=== PATIENT | female | born 1935 | race African-American/Black ===

== ENCOUNTER 2018-09-10 21:49 | Inpatient (IN) | payer MEDICARE, OTHER ==
[~2018-09-10] VITALS: Ht 170.2 cm; Wt 84.4 kg
[~2018-09-10 21:49] MED LIST: AMLODIPINE; INSULIN
[2018-09-10] MEDS ORDERED: ACETAMINOPHEN 325MG TABLET PO STA (22:54)
[2018-09-10] MEDS ORDERED: SODIUM CHLORIDE 0.9% 1,000 ML IV ONE (22:54)
[2018-09-10 23:55] LABS: BASOPHILS % 0.5 % (0.0-2.0); HEMATOCRIT. 35.7 % (36.0-48.0); HEMOGLOBIN. 11.3 g/dL (12.0-16.0); MEAN CORPUSCULAR VOLUME 81.9 fL (81.0-99.0); NEUTROPHILS % 85.5 % (40.0-76.0); PLATELET 279 x1000/uL (130-400); RED BLOOD CELL COUNT 4.35 mill/uL (4.2-5.4); RED CELL DISTRIBUTION WIDTH 16.1 % (11.6-14.6)
[2018-09-10 23:59] LABS: CLARITY URINE CLOUDY (CLEAR); COLOR URINE YELLOW (YELLOW); KETONES URINE 1+ (NEGATIVE); LEUKOCYTE ESTERASE URINE NEGATIVE (NEGATIVE); NITRITE URINE NEGATIVE (NEGATIVE); OCCULT BLOOD URINE 2+ (NEGATIVE); PROTEIN URINE 4+ (NEGATIVE); SPECIFIC GRAVITY URINE 1.024 (1.005-1.030)
[2018-09-11 00:02] LABS: CHLORIDE 103 mEq/L (98-107)
[2018-09-11] MEDS ORDERED: CEFTRIAXONE 1 G PREMIX 50 ML IV NR (01:00)
[2018-09-11] MEDS ORDERED: AZITHROMYCIN 500 MG in DEXT 5% WATER 250 ML IV SCH (01:00)
[2018-09-11] MEDS ORDERED: ACETAMINOPHEN 325MG TABLET PO PRN (01:30)
[2018-09-11] MEDS ORDERED: CLONIDINE 0.1MG TABLET PO PRN (01:30)
[2018-09-11] MEDS ORDERED: DEXTROSE 50% WATER 50ML SYRINGE IV PRN (01:30)
[2018-09-11] MEDS ORDERED: LEVOFLOXACIN 500MG PREMIX 100 ML IV SCH (01:30)
[2018-09-11] MEDS ORDERED: ONDANSETRON HCL 4MG/2ML INJ IV PRN (01:30)
[2018-09-11] MEDS ORDERED: GUAIFENESIN 200MG/10ML SUGAR FREE UDC PO PRN (02:30)
[2018-09-11] MEDS ORDERED: LEVOFLOXACIN 500MG PREMIX 100 ML IV NR (05:45)
[2018-09-11] MEDS: SODIUM CHLORIDE 0.9% 1,000 ML IV SCH ×2 (05:48→16:40)
[2018-09-11 09:00] VITALS: BP 140/65
[2018-09-11] MEDS ORDERED: CEFEPIME 1,000 MG in DEXTROSE 5% WATER 50 ML IV SCH (09:00)
[2018-09-11] MEDS: BLOOD SUGAR DIAGNOSTIC STRIP TEST SCH ×4 (09:34→21:14)
[2018-09-11] MEDS: INSULIN LISPRO 100 UNITS/ML SUBCUT SCH ×4 (09:35→21:00)
[2018-09-11] MEDS ORDERED: METF-815 PO (10:22)
[2018-09-11] MEDS ORDERED: AMLO10TA80 PO (10:24)
[2018-09-11 16:00] VITALS: BP 155/68
[2018-09-11] MEDS ORDERED: PIPERACILLIN/TAZOBACTAM 2.25 G in DEXTROSE 5% WATER 50 ML IV SCH (16:00)
[2018-09-11] MEDS: PIPERACILLIN/TAZ 2.25G PREMIX 50 ML IV SCH (16:40)
[2018-09-11 20:00] VITALS: BP 132/53
[2018-09-12] VITALS: BP 122/47
[2018-09-12] MEDS: PIPERACILLIN/TAZ 2.25G PREMIX 50 ML IV SCH ×3 (01:16→16:25)
[2018-09-12] MEDS: SODIUM CHLORIDE 0.9% 1,000 ML IV SCH ×2 (01:16→16:28)
[2018-09-12 04:00] VITALS: BP 139/63
[2018-09-12] MEDS: BLOOD SUGAR DIAGNOSTIC STRIP TEST SCH ×4 (06:37→20:53)
[2018-09-12] MEDS: INSULIN LISPRO 100 UNITS/ML SUBCUT SCH ×4 (06:38→20:53)
[2018-09-12 07:28] LABS: CREATINE KINASE 159 IU/L (26-192)
[2018-09-12 08:00] VITALS: BP 158/52
[2018-09-12] MEDS ORDERED: LEVOFLOXACIN 250MG PREMIX 50 ML IV SCH (11:00)
[2018-09-12 12:00] VITALS: BP 141/53
[2018-09-12] MEDS: IPRATROPIUM/ALBUTEROL 0.5-3(2.5)MG/3ML NEB HHN SCH (13:08)
[2018-09-12 16:00] VITALS: BP 154/68
[2018-09-12 20:00] VITALS: BP 126/65
[2018-09-13] VITALS: BP 132/58
[2018-09-13] MEDS: PIPERACILLIN/TAZ 2.25G PREMIX 50 ML IV SCH ×4 (00:58→23:55)
[2018-09-13 04:00] VITALS: BP 141/58
[2018-09-13] MEDS: INSULIN LISPRO 100 UNITS/ML SUBCUT SCH ×4 (06:07→20:37)
[2018-09-13] MEDS: BLOOD SUGAR DIAGNOSTIC STRIP TEST SCH ×4 (06:07→20:37)
[2018-09-13 07:39] LABS: BASOPHILS % 0.8 % (0.0-2.0); EOSINOPHILS % 1.7 % (0.0-5.0); HEMATOCRIT. 25.9 % (36.0-48.0); HEMOGLOBIN. 8.4 g/dL (12.0-16.0); LYMPHOCYTES % 22.1 % (20.0-50.0); MEAN CORPUSCULAR HEMOGLOBIN 26.4 pg (28.0-32.0); MEAN CORPUSCULAR VOLUME 81.5 fL (81.0-99.0); MEAN PLATELET VOLUME 9.3 fl (7.4-10.4); MONOCYTES % 8.1 % (2.0-8.0); NEUTROPHILS % 67.3 % (40.0-76.0); PLATELET 207 x1000/uL (130-400); RED BLOOD CELL COUNT 3.18 mill/uL (4.2-5.4); RED CELL DISTRIBUTION WIDTH 15.3 % (11.6-14.6)
[2018-09-13 08:00] VITALS: BP 157/58
[2018-09-13 11:21] LABS: TOTAL IRON BINDING CAPACITY 118 ug/dL (250-450)
[2018-09-13 12:00] VITALS: BP 124/52
[2018-09-13 16:00] VITALS: BP 133/58
[2018-09-13 20:00] VITALS: BP 160/54
[2018-09-13] MEDS: IPRATROPIUM/ALBUTEROL 0.5-3(2.5)MG/3ML NEB HHN SCH (20:03)
[2018-09-14] VITALS: BP 136/49
[2018-09-14] MEDS: IPRATROPIUM/ALBUTEROL 0.5-3(2.5)MG/3ML NEB HHN SCH ×3 (01:29→13:11)
[2018-09-14 04:00] VITALS: BP 155/62
[2018-09-14] MEDS: BLOOD SUGAR DIAGNOSTIC STRIP TEST SCH ×2 (06:31→11:45)
[2018-09-14] MEDS: INSULIN LISPRO 100 UNITS/ML SUBCUT SCH ×2 (06:31→12:11)
[2018-09-14 06:55] LABS: BASOPHILS % 0.7 % (0.0-2.0); EOSINOPHILS % 1.6 % (0.0-5.0); HEMATOCRIT. 24.9 % (36.0-48.0); LYMPHOCYTES % 19.3 % (20.0-50.0); MEAN CORPUSCULAR HEMOGLOBIN 26.5 pg (28.0-32.0); MEAN CORPUSCULAR VOLUME 82.2 fL (81.0-99.0); MEAN PLATELET VOLUME 9.2 fl (7.4-10.4); MONOCYTES % 10.5 % (2.0-8.0); NEUTROPHILS % 67.9 % (40.0-76.0); PLATELET 217 x1000/uL (130-400); RED BLOOD CELL COUNT 3.03 mill/uL (4.2-5.4); RED CELL DISTRIBUTION WIDTH 15.6 % (11.6-14.6)
[2018-09-14 08:00] VITALS: BP 163/63
[2018-09-14] MEDS: PIPERACILLIN/TAZ 2.25G PREMIX 50 ML IV SCH ×2 (08:00→08:52)
[2018-09-14] MEDS ORDERED: LEVOFLOXACIN 250MG TABLET PO SCH (11:00)
[2018-09-14 12:00] VITALS: BP 175/66
[2018-09-14 16:00] VITALS: BP 170/65
[2018-09-14 16:56] VITALS: BP 170/65
== END 2018-09-14 18:17 | disposition home or self-care (01) | DRG 871 ==
LOC: ER 21:49 → 5WST 09-11 01:07 → EDBEDREQDT 09-11 01:15 → EDBEDREQ 09-11 01:15 → EDBEDREQSVC 09-11 01:15 → EDBEDREQTM 09-11 01:15 → ENRESERV 09-11 07:10
PROVIDERS: ADMIT Internal Medicine; ATTEND Internal Medicine
DX: A41.9 Sepsis, unspecified organism (principal); J18.1 Lobar pneumonia, unspecified organism; N18.9 Chronic kidney disease, unspecified; E11.22 Type 2 diabetes mellitus with diabetic chronic kidney disease; R63.0 Anorexia; I12.9 Hypertensive chronic kidney disease with stage 1 through stage 4 chronic kidney disease, or unspecified chronic kidney disease; Z79.4 Long term (current) use of insulin; Z90.710 Acquired absence of both cervix and uterus; Z79.899 Other long term (current) drug therapy; Z68.29 Body mass index [BMI] 29.0-29.9, adult
CPT/HCPCS: 36415; 71045; 76770; 80048; 82270; 82550; 82962; 83036; 83540; 83550; 83605; 84145; 84484; 93005; 93970; 94640; 96365; 96375; 99285; C1893; J0456; J0696; J1815; J1956; J2543; J7030; J7060; J7620

== ENCOUNTER 2018-11-12 13:06 | Inpatient (IN) | payer MEDICARE ==
[~2018-11-12] VITALS: Ht 170.2 cm; Wt 80.3 kg
[~2018-11-12 13:06] MED LIST changes: +AMLO10TA80 PO; -AMLODIPINE; -INSULIN; +METF-815 PO
[2018-11-12 14:48] LABS: BASOPHILS % 0.5 % (0.0-2.0); EOSINOPHILS % 0.1 % (0.0-5.0); HEMATOCRIT. 29.4 % (36.0-48.0); HEMOGLOBIN. 9.3 g/dL (12.0-16.0); LYMPHOCYTES % 9.9 % (20.0-50.0); MEAN CORPUSCULAR HEMOGLOBIN 26.1 pg (28.0-32.0); MEAN CORPUSCULAR VOLUME 83.1 fL (81.0-99.0); MEAN PLATELET VOLUME 8.2 fl (7.4-10.4); MONOCYTES % 6.5 % (2.0-8.0); PLATELET 446 x1000/uL (130-400); RED BLOOD CELL COUNT 3.54 mill/uL (4.2-5.4); RED CELL DISTRIBUTION WIDTH 16.1 % (11.6-14.6)
[2018-11-12 14:55] LABS: CHLORIDE 112 mEq/L (98-107)
[2018-11-12] MEDS ORDERED: ASPIRIN 81MG TABLET PO ONE (16:00)
[2018-11-12] MEDS ORDERED: FUROSEMIDE 40MG/4ML VIAL IV ONE (16:00)
[2018-11-12] MEDS ORDERED: CLONIDINE 0.1MG TABLET PO PRN (16:45)
[2018-11-12] MEDS ORDERED: ACETAMINOPHEN 325MG TABLET PO PRN (16:45)
[2018-11-12] MEDS ORDERED: ONDANSETRON HCL 4MG/2ML INJ IV PRN (16:45)
[2018-11-12] MEDS ORDERED: GUAIFENESIN-DM 200MG-20MG/10ML UDC PO PRN (16:45)
[2018-11-12] MEDS ORDERED: DEXTROSE 50% WATER 50ML SYRINGE IV PRN (16:45)
[2018-11-12] MEDS ORDERED: HYDRALAZINE 20MG/ML VIAL IV ONE (19:30)
[2018-11-12 22:30] VITALS: BP 182/73
[2018-11-12] MEDS: CARVEDILOL 12.5MG TABLET PO SCH (23:31)
[2018-11-12] MEDS: AMLODIPINE 5MG TABLET PO SCH (23:32)
[2018-11-12] MEDS: BLOOD SUGAR DIAGNOSTIC STRIP TEST SCH (23:42)
[2018-11-12] MEDS: INSULIN LISPRO 100 UNITS/ML SUBCUT SCH (23:43)
[2018-11-13] VITALS (7 sets, daily range): BP systolic 124–149; BP diastolic 47–83
[2018-11-13] MEDS: IPRATROPIUM/ALBUTEROL 0.5-3(2.5)MG/3ML NEB HHN PRN ×2 (02:46→08:32)
[2018-11-13] MEDS: BLOOD SUGAR DIAGNOSTIC STRIP TEST SCH ×4 (05:57→21:59)
[2018-11-13 07:04] LABS: BASOPHILS % 0.5 % (0.0-2.0); EOSINOPHILS % 0.1 % (0.0-5.0); HEMATOCRIT. 24.6 % (36.0-48.0); HEMOGLOBIN. 7.9 g/dL (12.0-16.0); LYMPHOCYTES % 8.1 % (20.0-50.0); MEAN CORPUSCULAR HEMOGLOBIN 26.2 pg (28.0-32.0); MEAN CORPUSCULAR VOLUME 81.9 fL (81.0-99.0); MEAN PLATELET VOLUME 8.3 fl (7.4-10.4); MONOCYTES % 6.7 % (2.0-8.0); NEUTROPHILS % 84.6 % (40.0-76.0); PLATELET 453 x1000/uL (130-400); RED BLOOD CELL COUNT 3.01 mill/uL (4.2-5.4); RED CELL DISTRIBUTION WIDTH 15.8 % (11.6-14.6)
[2018-11-13] MEDS ORDERED: FUROSEMIDE 40MG/4ML VIAL IVP SCH (09:00)
[2018-11-13] MEDS ORDERED: ASPIRIN 81MG TABLET PO SCH (09:00)
[2018-11-13] MEDS ORDERED: AZITHROMYCIN 500 MG TABLET PO NR (09:15)
[2018-11-13] MEDS: AMLODIPINE 5MG TABLET PO SCH ×2 (10:22→21:58)
[2018-11-13] MEDS: CARVEDILOL 12.5MG TABLET PO SCH ×2 (10:22→21:58)
[2018-11-13] MEDS: INSULIN LISPRO 100 UNITS/ML SUBCUT SCH ×4 (10:23→21:00)
[2018-11-13] MEDS: IPRATROPIUM/ALBUTEROL 0.5-3(2.5)MG/3ML NEB HHN SCH ×3 (13:08→20:45)
[2018-11-13] MEDS: CEFTRIAXONE 1 G PREMIX 50 ML IV SCH (13:09)
[2018-11-13 14:21] LABS: CLARITY URINE CLOUDY (CLEAR); COLOR URINE YELLOW (YELLOW); KETONES URINE TRACE (NEGATIVE); LEUKOCYTE ESTERASE URINE NEGATIVE (NEGATIVE); NITRITE URINE NEGATIVE (NEGATIVE); OCCULT BLOOD URINE NEGATIVE (NEGATIVE); PROTEIN URINE 3+ (NEGATIVE); SPECIFIC GRAVITY URINE 1.015 (1.005-1.030); UROBILINOGEN URINE 0.2 E.U./dL (0.2-1.0)
[2018-11-13 14:57] LABS: PHENCYCLIDINE URINE SCREEN NEGATIVE (NEGATIVE)
[2018-11-13 14:59] LABS: *AMPHETAMINES SCREEN URINE NEGATIVE (NEGATIVE); CANNABINOID URINE SCREEN NEGATIVE (NEGATIVE)
[2018-11-13 15:00] LABS: *BARBITURATES SCREEN URINE NEGATIVE (NEGATIVE); *BENZODIAZEPINES SCREEN URINE NEGATIVE (NEGATIVE); *COCAINE SCREEN URINE NEGATIVE (NEGATIVE); METHADONE URINE SCREEN NEGATIVE (NEGATIVE); OPIATES URINE SCREEN NEGATIVE (NEGATIVE)
[2018-11-13 16:20] LABS: T4 FREE 1.49 ng/dL (0.76-1.46)
[2018-11-13 16:28] LABS: CREATINE KINASE 139 IU/L (26-192)
[2018-11-13 16:29] LABS: CREATINE KINASE MB FRACTION 2.7 ng/mL (0.5-3.6)
[2018-11-13] MEDS: GUAIFENESIN 600MG ER TABLET PO SCH (21:58)
[2018-11-14 00:08] VITALS: BP 133/57
[2018-11-14 00:21] LABS: CREATINE KINASE 123 IU/L (26-192)
[2018-11-14] MEDS: IPRATROPIUM/ALBUTEROL 0.5-3(2.5)MG/3ML NEB HHN SCH ×6 (00:21→20:48)
[2018-11-14 00:22] LABS: CREATINE KINASE MB FRACTION 2.2 ng/mL (0.5-3.6)
[2018-11-14 04:18] VITALS: BP 124/61
[2018-11-14] MEDS: BLOOD SUGAR DIAGNOSTIC STRIP TEST SCH ×4 (06:07→21:26)
[2018-11-14 08:00] VITALS: BP 123/43
[2018-11-14] MEDS: INSULIN LISPRO 100 UNITS/ML SUBCUT SCH ×4 (08:10→21:26)
[2018-11-14] MEDS: CARVEDILOL 12.5MG TABLET PO SCH ×2 (08:55→21:25)
[2018-11-14] MEDS: GUAIFENESIN 600MG ER TABLET PO SCH ×2 (08:55→21:25)
[2018-11-14] MEDS: AZITHROMYCIN 500 MG TABLET PO SCH (08:55)
[2018-11-14] MEDS: AMLODIPINE 5MG TABLET PO SCH ×2 (08:56→21:25)
[2018-11-14] MEDS ORDERED: AZITHROMYCIN 250 MG TABLET PO SCH (09:00)
[2018-11-14] MEDS: CEFTRIAXONE 1 G PREMIX 50 ML IV SCH (11:43)
[2018-11-14 12:00] VITALS: BP 118/54
[2018-11-14] MEDS ORDERED: FUROSEMIDE 100MG/10ML VIAL IVP NR (15:30)
[2018-11-14 15:42] LABS: BASOPHILS % 1.4 % (0.0-2.0); EOSINOPHILS % 0.3 % (0.0-5.0); HEMATOCRIT. 23.8 % (36.0-48.0); HEMOGLOBIN. 7.6 g/dL (12.0-16.0); LYMPHOCYTES % 13.4 % (20.0-50.0); MEAN CORPUSCULAR VOLUME 81.6 fL (81.0-99.0); MEAN PLATELET VOLUME 8.3 fl (7.4-10.4); MONOCYTES % 7.8 % (2.0-8.0); NEUTROPHILS % 77.1 % (40.0-76.0); PLATELET 414 x1000/uL (130-400); RED BLOOD CELL COUNT 2.92 mill/uL (4.2-5.4); RED CELL DISTRIBUTION WIDTH 15.4 % (11.6-14.6)
[2018-11-14 15:59] LABS: CHLORIDE 108 mEq/L (98-107)
[2018-11-14 16:00] VITALS: BP 138/60
[2018-11-14 16:07] LABS: CREATINE KINASE 115 IU/L (26-192)
[2018-11-14 16:09] LABS: CREATINE KINASE MB FRACTION 1.6 ng/mL (0.5-3.6)
[2018-11-14 20:16] VITALS: BP 134/56
[2018-11-15] VITALS: BP 113/43
[2018-11-15] MEDS: IPRATROPIUM/ALBUTEROL 0.5-3(2.5)MG/3ML NEB HHN SCH ×6 (00:48→20:35)
[2018-11-15 04:00] VITALS: BP 111/57
[2018-11-15] MEDS: BLOOD SUGAR DIAGNOSTIC STRIP TEST SCH ×5 (06:16→20:29)
[2018-11-15 06:30] LABS: BASOPHILS % 0.6 % (0.0-2.0); EOSINOPHILS % 0.5 % (0.0-5.0); HEMATOCRIT. 23.7 % (36.0-48.0); HEMOGLOBIN. 7.6 g/dL (12.0-16.0); LYMPHOCYTES % 17.1 % (20.0-50.0); MEAN CORPUSCULAR HEMOGLOBIN 25.9 pg (28.0-32.0); MEAN CORPUSCULAR VOLUME 81.2 fL (81.0-99.0); MEAN PLATELET VOLUME 8.3 fl (7.4-10.4); MONOCYTES % 7.5 % (2.0-8.0); NEUTROPHILS % 74.3 % (40.0-76.0); PLATELET 383 x1000/uL (130-400); RED BLOOD CELL COUNT 2.92 mill/uL (4.2-5.4); RED CELL DISTRIBUTION WIDTH 15.8 % (11.6-14.6)
[2018-11-15 08:00] VITALS: BP 121/40
[2018-11-15] MEDS: INSULIN LISPRO 100 UNITS/ML SUBCUT SCH ×5 (08:10→20:42)
[2018-11-15] MEDS: GUAIFENESIN 600MG ER TABLET PO SCH ×2 (09:02→20:42)
[2018-11-15] MEDS: CARVEDILOL 12.5MG TABLET PO SCH ×2 (09:02→20:42)
[2018-11-15] MEDS: AZITHROMYCIN 500 MG TABLET PO SCH (09:02)
[2018-11-15] MEDS: AMLODIPINE 5MG TABLET PO SCH (09:02)
[2018-11-15] MEDS: CEFTRIAXONE 1 G PREMIX 50 ML IV SCH (10:44)
[2018-11-15 12:00] VITALS: BP 112/64
[2018-11-15 13:36] LABS: BG BASE EXCESS -6.8 mmol/L (-2.0-2.0); BG CARBOXYHEMOGLOBIN 0.7 % (0.5-1.5); BG FRACTION INSPIRED OXYGEN 28; BG HCO3 ACT 17.5 mmol/L (22.0-26.0); BG METHEMOGLOBIN 0.3 % (0.0-1.5); BG OXYGEN SATURATION 92.9 % (92.0-98.5); BG PH 7.383 (7.350-7.450); BG PO2 68.6 mmHg (75.0-100.0); BG SAMPLE SITE RIGHT RADIAL; BG VENT MODE NASAL CANNULA
[2018-11-15] MEDS ORDERED: POLYETHYLENE GLYCOL 3350 (17GM) 1 DOSE PACK PO NR (15:45)
[2018-11-15 16:00] VITALS: BP 124/50
[2018-11-15 16:35] LABS: CHLORIDE 105 mEq/L (98-107)
[2018-11-15] MEDS: IRON SUCROSE COMPLEX 100 MG/5 ML ML IV SCH (16:41)
[2018-11-15] MEDS: SODIUM BICARBONATE 650 MG TABLET PO SCH (16:41)
[2018-11-15 16:44] LABS: TOTAL IRON BINDING CAPACITY 169 ug/dL (250-450)
[2018-11-15 20:00] VITALS: BP 138/44
[2018-11-15] MEDS: AMLODIPINE 2.5MG TABLET PO SCH (20:42)
[2018-11-16] VITALS (13 sets, daily range): BP systolic 110–146; BP diastolic 42–90
[2018-11-16] MEDS: IPRATROPIUM/ALBUTEROL 0.5-3(2.5)MG/3ML NEB HHN SCH ×4 (00:26→20:55)
[2018-11-16] MEDS: BLOOD SUGAR DIAGNOSTIC STRIP TEST SCH ×4 (06:33→21:42)
[2018-11-16 07:01] LABS: BASOPHILS % 0.3 % (0.0-2.0); EOSINOPHILS % 0.3 % (0.0-5.0); LYMPHOCYTES % 16.5 % (20.0-50.0); MEAN CORPUSCULAR HEMOGLOBIN 26.3 pg (28.0-32.0); MEAN CORPUSCULAR VOLUME 80.8 fL (81.0-99.0); MEAN PLATELET VOLUME 8.3 fl (7.4-10.4); MONOCYTES % 8.5 % (2.0-8.0); NEUTROPHILS % 74.4 % (40.0-76.0); PLATELET 343 x1000/uL (130-400); RED BLOOD CELL COUNT 2.48 mill/uL (4.2-5.4); RED CELL DISTRIBUTION WIDTH 15.9 % (11.6-14.6)
[2018-11-16 07:47] LABS: HEMOGLOBIN. 6.5 g/dL (12.0-16.0)
[2018-11-16 08:04] LABS: PHOSPHORUS 6.6 mg/dL (2.5-4.9)
[2018-11-16] MEDS: INSULIN LISPRO 100 UNITS/ML SUBCUT SCH ×4 (08:10→21:00)
[2018-11-16] MEDS: SODIUM BICARBONATE 650 MG TABLET PO SCH ×2 (09:15→18:03)
[2018-11-16] MEDS: GUAIFENESIN 600MG ER TABLET PO SCH ×2 (09:17→21:33)
[2018-11-16] MEDS: AMLODIPINE 2.5MG TABLET PO SCH ×2 (09:17→21:33)
[2018-11-16] MEDS: AZITHROMYCIN 500 MG TABLET PO SCH (09:17)
[2018-11-16] MEDS: CARVEDILOL 12.5MG TABLET PO SCH ×2 (09:17→21:34)
[2018-11-16] MEDS: DOCUSATE SODIUM 100MG CAPSULE PO SCH ×2 (09:19→18:03)
[2018-11-16] MEDS: CEFTRIAXONE 1 G PREMIX 50 ML IV SCH (09:31)
[2018-11-16] MEDS: CALCIUM ACETATE 667MG CAPSULE PO SCH ×2 (13:59→18:03)
[2018-11-16] MEDS: IRON SUCROSE COMPLEX 100 MG/5 ML ML IV SCH (16:00)
[2018-11-16 20:08] LABS: HEMATOCRIT 29.5 % (36.0-48.0); HEMOGLOBIN 9.5 g/dL (12.0-16.0)
[2018-11-17] VITALS: BP 119/50
[2018-11-17] MEDS: IPRATROPIUM/ALBUTEROL 0.5-3(2.5)MG/3ML NEB HHN SCH ×5 (01:40→21:34)
[2018-11-17 04:00] VITALS: BP 107/81
[2018-11-17 06:13] LABS: BASOPHILS % 0.5 % (0.0-2.0); EOSINOPHILS % 0.9 % (0.0-5.0); HEMATOCRIT. 26.1 % (36.0-48.0); HEMOGLOBIN. 8.6 g/dL (12.0-16.0); LYMPHOCYTES % 20.7 % (20.0-50.0); MEAN CORPUSCULAR HEMOGLOBIN 27.4 pg (28.0-32.0); MEAN CORPUSCULAR VOLUME 83.2 fL (81.0-99.0); MEAN PLATELET VOLUME 8.3 fl (7.4-10.4); MONOCYTES % 8.2 % (2.0-8.0); NEUTROPHILS % 69.7 % (40.0-76.0); PLATELET 325 x1000/uL (130-400); RED BLOOD CELL COUNT 3.14 mill/uL (4.2-5.4); RED CELL DISTRIBUTION WIDTH 15.9 % (11.6-14.6)
[2018-11-17 06:42] LABS: CHLORIDE 109 mEq/L (98-107)
[2018-11-17] MEDS: BLOOD SUGAR DIAGNOSTIC STRIP TEST SCH ×4 (07:40→23:24)
[2018-11-17 08:00] VITALS: BP 154/60
[2018-11-17] MEDS: INSULIN LISPRO 100 UNITS/ML SUBCUT SCH ×4 (08:10→23:31)
[2018-11-17] MEDS: CALCIUM ACETATE 667MG CAPSULE PO SCH ×3 (08:55→18:28)
[2018-11-17] MEDS: DOCUSATE SODIUM 100MG CAPSULE PO SCH ×2 (09:02→16:46)
[2018-11-17] MEDS: AZITHROMYCIN 500 MG TABLET PO SCH (09:02)
[2018-11-17] MEDS: GUAIFENESIN 600MG ER TABLET PO SCH ×2 (09:02→23:24)
[2018-11-17] MEDS: SODIUM BICARBONATE 650 MG TABLET PO SCH ×2 (09:02→16:46)
[2018-11-17] MEDS: CARVEDILOL 12.5MG TABLET PO SCH ×2 (09:03→23:24)
[2018-11-17] MEDS: AMLODIPINE 2.5MG TABLET PO SCH ×2 (09:04→23:24)
[2018-11-17 09:12] LABS: IMMUNOGLOBULIN A 283 mg/dL (64-422); IMMUNOGLOBULIN G 1253 mg/dL (700-1600); IMMUNOGLOBULIN M 29 mg/dL (26-217)
[2018-11-17] MEDS: CEFTRIAXONE 1 G PREMIX 50 ML IV SCH (09:55)
[2018-11-17 12:00] VITALS: BP 130/56
[2018-11-17] MEDS ORDERED: NA PHOS,M-B/NA PHOS,DI-BA ENEMA 118ML PR PRN (15:30)
[2018-11-17] MEDS ORDERED: LACTULOSE 20G/30ML UDC PO NR (15:30)
[2018-11-17 16:00] VITALS: BP 140/51
[2018-11-17] MEDS: IRON SUCROSE COMPLEX 100 MG/5 ML ML IV SCH (16:46)
[2018-11-17 17:49] LABS: T4 FREE 1.29 ng/dL (0.76-1.46)
[2018-11-17 18:07] LABS: FOLIC ACID (FOLATE) SERUM 6.9 ng/mL (>5.38)
[2018-11-17 19:14] LABS: ANTI-NUCLEAR ANTIBODIES DIRECT Negative (Negative)
[2018-11-17 20:00] VITALS: BP 137/67
[2018-11-17] MEDS ORDERED: LACTULOSE 20G/30ML UDC PO PRN (21:00)
[2018-11-18] VITALS: BP 130/64
[2018-11-18] MEDS: IPRATROPIUM/ALBUTEROL 0.5-3(2.5)MG/3ML NEB HHN SCH ×6 (00:49→21:08)
[2018-11-18 04:00] VITALS: BP 117/56
[2018-11-18 06:24] LABS: BASOPHILS % 0.7 % (0.0-2.0); HEMATOCRIT. 26.4 % (36.0-48.0); HEMOGLOBIN. 8.7 g/dL (12.0-16.0); LYMPHOCYTES % 15.6 % (20.0-50.0); MEAN CORPUSCULAR HEMOGLOBIN 27.5 pg (28.0-32.0); MEAN CORPUSCULAR VOLUME 83.5 fL (81.0-99.0); MEAN PLATELET VOLUME 8.4 fl (7.4-10.4); MONOCYTES % 7.8 % (2.0-8.0); NEUTROPHILS % 74.9 % (40.0-76.0); PLATELET 338 x1000/uL (130-400); RED BLOOD CELL COUNT 3.16 mill/uL (4.2-5.4); RED CELL DISTRIBUTION WIDTH 15.9 % (11.6-14.6)
[2018-11-18 06:45] LABS: CHLORIDE 112 mEq/L (98-107)
[2018-11-18] MEDS: BLOOD SUGAR DIAGNOSTIC STRIP TEST SCH ×4 (06:54→21:28)
[2018-11-18] MEDS: INSULIN LISPRO 100 UNITS/ML SUBCUT SCH ×4 (06:55→21:00)
[2018-11-18 06:58] LABS: PHOSPHORUS 6.3 mg/dL (2.5-4.9)
[2018-11-18 08:00] VITALS: BP 130/74
[2018-11-18] MEDS: DOCUSATE SODIUM 100MG CAPSULE PO SCH ×2 (09:00→17:00)
[2018-11-18] MEDS: SODIUM BICARBONATE 650 MG TABLET PO SCH ×2 (09:00→17:00)
[2018-11-18] MEDS: CARVEDILOL 12.5MG TABLET PO SCH ×2 (09:00→21:28)
[2018-11-18] MEDS: CALCIUM ACETATE 667MG CAPSULE PO SCH ×2 (09:00→18:30)
[2018-11-18] MEDS: POLYETHYLENE GLYCOL 3350 (17GM) 1 DOSE PACK PO SCH (09:01)
[2018-11-18] MEDS: GUAIFENESIN 600MG ER TABLET PO SCH ×2 (09:01→21:28)
[2018-11-18] MEDS: AMLODIPINE 2.5MG TABLET PO SCH ×2 (09:01→21:45)
[2018-11-18] MEDS: AZITHROMYCIN 500 MG TABLET PO SCH (09:01)
[2018-11-18 09:11] LABS: GLOMERULAR BASEMENT MEMB AB 3 units (0-20)
[2018-11-18] MEDS: CEFTRIAXONE 1 G PREMIX 50 ML IV SCH (10:45)
[2018-11-18 12:00] VITALS: BP 137/68
[2018-11-18 13:11] LABS: ANTI-MYELOPEROXIDASE AB < 9.0 U/mL (0.0-9.0); ANTI-PROTEINASE 3 ABS < 3.5 U/mL (0.0-3.5)
[2018-11-18 15:06] LABS: ATYPICAL P-ANCA <1:20 titer (Neg:<1:20); CYTOPLASMIC C-ANCA <1:20 titer (Neg:<1:20); PERINUCLEAR P-ANCA <1:20 titer (Neg:<1:20)
[2018-11-18 16:00] VITALS: BP 140/54
[2018-11-18 20:00] VITALS: BP 152/64
[2018-11-19] VITALS: BP 138/50
[2018-11-19] MEDS: IPRATROPIUM/ALBUTEROL 0.5-3(2.5)MG/3ML NEB HHN SCH ×6 (00:26→21:03)
[2018-11-19 04:00] VITALS: BP 142/61
[2018-11-19 05:45] LABS: INR 1.2
[2018-11-19 06:05] LABS: BASOPHILS % 0.7 % (0.0-2.0); EOSINOPHILS % 1.2 % (0.0-5.0); HEMATOCRIT. 26.6 % (36.0-48.0); HEMOGLOBIN. 8.7 g/dL (12.0-16.0); LYMPHOCYTES % 16.1 % (20.0-50.0); MEAN CORPUSCULAR HEMOGLOBIN 27.3 pg (28.0-32.0); MEAN CORPUSCULAR VOLUME 83.4 fL (81.0-99.0); MEAN PLATELET VOLUME 8.6 fl (7.4-10.4); MONOCYTES % 9.4 % (2.0-8.0); NEUTROPHILS % 72.6 % (40.0-76.0); PLATELET 314 x1000/uL (130-400); RED BLOOD CELL COUNT 3.18 mill/uL (4.2-5.4); RED CELL DISTRIBUTION WIDTH 15.5 % (11.6-14.6)
[2018-11-19] MEDS: BLOOD SUGAR DIAGNOSTIC STRIP TEST SCH ×4 (07:40→21:10)
[2018-11-19 08:00] VITALS: BP 139/68
[2018-11-19] MEDS: INSULIN LISPRO 100 UNITS/ML SUBCUT SCH ×4 (08:10→21:00)
[2018-11-19] MEDS: CALCIUM ACETATE 667MG CAPSULE PO SCH ×3 (08:10→18:20)
[2018-11-19] MEDS: SODIUM BICARBONATE 650 MG TABLET PO SCH ×2 (09:00→18:20)
[2018-11-19] MEDS: POLYETHYLENE GLYCOL 3350 (17GM) 1 DOSE PACK PO SCH (09:00)
[2018-11-19] MEDS: AMLODIPINE 2.5MG TABLET PO SCH ×2 (09:00→21:09)
[2018-11-19] MEDS: GUAIFENESIN 600MG ER TABLET PO SCH ×2 (09:00→21:09)
[2018-11-19] MEDS: AZITHROMYCIN 500 MG TABLET PO SCH (09:00)
[2018-11-19] MEDS: DOCUSATE SODIUM 100MG CAPSULE PO SCH ×2 (09:00→18:20)
[2018-11-19] MEDS: CARVEDILOL 12.5MG TABLET PO SCH ×2 (09:00→21:09)
[2018-11-19] MEDS: CEFTRIAXONE 1 G PREMIX 50 ML IV SCH (10:46)
[2018-11-19] MEDS ORDERED: BISACODYL 10MG SUPP PR SCH (11:00)
[2018-11-19] MEDS ORDERED: BISACODYL 5MG TABLET PO SCH (11:00)
[2018-11-19 12:00] VITALS: BP 138/68
[2018-11-19 13:16] LABS: A/G RATIO 0.6 (0.7-1.7); ALBUMIN 2.8 g/dL (2.9-4.4); ALPHA-1-GLOBULIN 0.5 g/dL (0.0-0.4); ALPHA-2-GLOBULIN 1.3 g/dL (0.4-1.0); GAMMA GLOBULINS 1.6 g/dL (0.4-1.8); GLOBULIN TOTAL 4.4 g/dL (2.2-3.9); M-SPIKE 0.5 g/dL (Not Observed); TOTAL PROTEIN SERUM 7.2 g/dL (6.0-8.5)
[2018-11-19 14:58] LABS: CLARITY URINE CLEAR (CLEAR); COLOR URINE YELLOW (YELLOW); KETONES URINE NEGATIVE (NEGATIVE); LEUKOCYTE ESTERASE URINE 1+ (NEGATIVE); NITRITE URINE NEGATIVE (NEGATIVE); OCCULT BLOOD URINE TRACE (NEGATIVE); PROTEIN URINE 2+ (NEGATIVE); SPECIFIC GRAVITY URINE 1.015 (1.005-1.030); UROBILINOGEN URINE 0.2 E.U./dL (0.2-1.0)
[2018-11-19] MEDS ORDERED: LIDOCAINE HCL 2% JELLY 5ML ONE (15:05)
[2018-11-19] MEDS ORDERED: TETRACAINE/BENZOCAINE/BUTAMBEN 20 GM SPRAY MM ONE (15:05)
[2018-11-19 16:00] VITALS: BP 169/68
[2018-11-19] MEDS ORDERED: BISACODYL 5MG TABLET PO NR (18:00)
[2018-11-19 20:00] VITALS: BP 146/64
[2018-11-20] VITALS: BP 130/48
[2018-11-20] MEDS: IPRATROPIUM/ALBUTEROL 0.5-3(2.5)MG/3ML NEB HHN SCH ×6 (00:51→20:24)
[2018-11-20 04:00] VITALS: BP 140/52
[2018-11-20 07:01] LABS: EOSINOPHILS % 1.2 % (0.0-5.0); HEMOGLOBIN. 8.7 g/dL (12.0-16.0); LYMPHOCYTES % 20.6 % (20.0-50.0); MEAN CORPUSCULAR VOLUME 83.6 fL (81.0-99.0); MEAN PLATELET VOLUME 8.3 fl (7.4-10.4); MONOCYTES % 8.9 % (2.0-8.0); NEUTROPHILS % 68.3 % (40.0-76.0); PLATELET 324 x1000/uL (130-400); RED BLOOD CELL COUNT 3.23 mill/uL (4.2-5.4); RED CELL DISTRIBUTION WIDTH 16.4 % (11.6-14.6)
[2018-11-20 07:28] LABS: CHLORIDE 113 mEq/L (98-107)
[2018-11-20 07:49] LABS: PHOSPHORUS 4.7 mg/dL (2.5-4.9)
[2018-11-20 08:00] VITALS: BP 129/53
[2018-11-20] MEDS: INSULIN LISPRO 100 UNITS/ML SUBCUT SCH ×4 (08:09→21:00)
[2018-11-20] MEDS: BLOOD SUGAR DIAGNOSTIC STRIP TEST SCH ×4 (08:09→21:03)
[2018-11-20] MEDS: CALCIUM ACETATE 667MG CAPSULE PO SCH ×3 (08:10→18:10)
[2018-11-20] MEDS: POLYETHYLENE GLYCOL 3350 (17GM) 1 DOSE PACK PO SCH (08:11)
[2018-11-20] MEDS: DOCUSATE SODIUM 100MG CAPSULE PO SCH ×2 (08:11→16:28)
[2018-11-20] MEDS: AMLODIPINE 2.5MG TABLET PO SCH ×2 (08:11→21:02)
[2018-11-20] MEDS: CARVEDILOL 12.5MG TABLET PO SCH ×2 (08:11→21:02)
[2018-11-20] MEDS: GUAIFENESIN 600MG ER TABLET PO SCH ×2 (08:11→21:00)
[2018-11-20] MEDS: SODIUM BICARBONATE 650 MG TABLET PO SCH ×2 (08:12→16:28)
[2018-11-20] MEDS: AZITHROMYCIN 500 MG TABLET PO SCH (08:12)
[2018-11-20] MEDS ORDERED: LIDOCAINE HCL 2% JELLY 5ML ONE (10:19)
[2018-11-20] MEDS ORDERED: MIDAZOLAM HCL 2 MG/2 ML VIAL ONE ×2 (10:19→11:16)
[2018-11-20] MEDS ORDERED: TETRACAINE/BENZOCAINE/BUTAMBEN 20 GM SPRAY MM ONE (10:19)
[2018-11-20] MEDS ORDERED: FENTANYL CITRATE/PF 50MCG/ML 2ML VIAL ONE (10:19)
[2018-11-20] MEDS ORDERED: SODIUM BICARBONATE 4% (2.4MEQ) 5ML VIAL IV ONE (12:20)
[2018-11-20 16:00] VITALS: BP 139/64
[2018-11-20] MEDS: CEFTRIAXONE 1 G PREMIX 50 ML IV SCH (16:28)
[2018-11-20 20:00] VITALS: BP 149/74
[2018-11-21] VITALS: BP 131/58
[2018-11-21] MEDS: IPRATROPIUM/ALBUTEROL 0.5-3(2.5)MG/3ML NEB HHN SCH ×6 (01:35→19:55)
[2018-11-21 04:00] VITALS: BP 151/61
[2018-11-21 05:46] LABS: BASOPHILS % 0.7 % (0.0-2.0); EOSINOPHILS % 1.5 % (0.0-5.0); HEMATOCRIT. 29.7 % (36.0-48.0); HEMOGLOBIN. 9.5 g/dL (12.0-16.0); LYMPHOCYTES % 17.6 % (20.0-50.0); MEAN CORPUSCULAR HEMOGLOBIN 27.1 pg (28.0-32.0); MEAN CORPUSCULAR VOLUME 84.7 fL (81.0-99.0); MEAN PLATELET VOLUME 8.5 fl (7.4-10.4); MONOCYTES % 8.1 % (2.0-8.0); NEUTROPHILS % 72.1 % (40.0-76.0); PLATELET 343 x1000/uL (130-400); RED CELL DISTRIBUTION WIDTH 16.4 % (11.6-14.6)
[2018-11-21] MEDS: INSULIN LISPRO 100 UNITS/ML SUBCUT SCH ×4 (07:51→21:08)
[2018-11-21] MEDS: BLOOD SUGAR DIAGNOSTIC STRIP TEST SCH ×4 (07:51→21:08)
[2018-11-21 08:00] VITALS: BP 128/44
[2018-11-21] MEDS: AZITHROMYCIN 500 MG TABLET PO SCH (08:29)
[2018-11-21] MEDS: SODIUM BICARBONATE 650 MG TABLET PO SCH ×2 (08:29→17:29)
[2018-11-21] MEDS: CARVEDILOL 12.5MG TABLET PO SCH ×2 (08:30→21:05)
[2018-11-21] MEDS: POLYETHYLENE GLYCOL 3350 (17GM) 1 DOSE PACK PO SCH (08:30)
[2018-11-21] MEDS: CALCIUM ACETATE 667MG CAPSULE PO SCH ×3 (08:31→18:01)
[2018-11-21] MEDS: GUAIFENESIN 600MG ER TABLET PO SCH ×2 (08:31→21:03)
[2018-11-21] MEDS: DOCUSATE SODIUM 100MG CAPSULE PO SCH ×2 (08:31→17:29)
[2018-11-21] MEDS: AMLODIPINE 2.5MG TABLET PO SCH ×2 (08:31→21:04)
[2018-11-21 12:00] VITALS: BP 125/52
[2018-11-21 16:00] VITALS: BP 157/63
[2018-11-21 20:00] VITALS: BP 156/56
[2018-11-22] VITALS: BP 144/65
[2018-11-22] MEDS: IPRATROPIUM/ALBUTEROL 0.5-3(2.5)MG/3ML NEB HHN SCH ×6 (01:35→21:24)
[2018-11-22 04:00] VITALS: BP 148/52
[2018-11-22 06:46] LABS: BASOPHILS % 0.7 % (0.0-2.0); HEMATOCRIT. 28.2 % (36.0-48.0); HEMOGLOBIN. 9.2 g/dL (12.0-16.0); LYMPHOCYTES % 20.5 % (20.0-50.0); MEAN CORPUSCULAR HEMOGLOBIN 27.4 pg (28.0-32.0); MEAN CORPUSCULAR VOLUME 84.3 fL (81.0-99.0); MEAN PLATELET VOLUME 8.1 fl (7.4-10.4); MONOCYTES % 8.1 % (2.0-8.0); NEUTROPHILS % 68.7 % (40.0-76.0); PLATELET 326 x1000/uL (130-400); RED BLOOD CELL COUNT 3.34 mill/uL (4.2-5.4)
[2018-11-22 07:28] LABS: PHOSPHORUS 3.8 mg/dL (2.5-4.9)
[2018-11-22 08:00] VITALS: BP 138/62
[2018-11-22] MEDS: INSULIN LISPRO 100 UNITS/ML SUBCUT SCH ×4 (08:10→21:00)
[2018-11-22] MEDS: BLOOD SUGAR DIAGNOSTIC STRIP TEST SCH ×4 (08:23→21:08)
[2018-11-22] MEDS: CALCIUM ACETATE 667MG CAPSULE PO SCH ×3 (09:03→18:15)
[2018-11-22] MEDS: SODIUM BICARBONATE 650 MG TABLET PO SCH ×2 (09:03→16:50)
[2018-11-22] MEDS: POLYETHYLENE GLYCOL 3350 (17GM) 1 DOSE PACK PO SCH (09:03)
[2018-11-22] MEDS: GUAIFENESIN 600MG ER TABLET PO SCH ×2 (09:03→20:58)
[2018-11-22] MEDS: AMLODIPINE 2.5MG TABLET PO SCH (09:04)
[2018-11-22] MEDS: CARVEDILOL 12.5MG TABLET PO SCH ×2 (09:04→20:58)
[2018-11-22] MEDS: DOCUSATE SODIUM 100MG CAPSULE PO SCH ×2 (09:04→16:50)
[2018-11-22 12:00] VITALS: BP 146/56
[2018-11-22 16:00] VITALS: BP 159/74
[2018-11-22 20:00] VITALS: BP 145/86
[2018-11-22] MEDS: AMLODIPINE 5MG TABLET PO SCH (20:57)
[2018-11-23] VITALS: BP 136/72
[2018-11-23] MEDS: IPRATROPIUM/ALBUTEROL 0.5-3(2.5)MG/3ML NEB HHN SCH ×6 (01:11→20:42)
[2018-11-23 04:00] VITALS: BP 149/58
[2018-11-23] MEDS: BLOOD SUGAR DIAGNOSTIC STRIP TEST SCH ×4 (06:15→20:42)
[2018-11-23 06:30] LABS: BASOPHILS % 0.6 % (0.0-2.0); HEMOGLOBIN. 9.3 g/dL (12.0-16.0); LYMPHOCYTES % 20.8 % (20.0-50.0); MEAN CORPUSCULAR HEMOGLOBIN 26.7 pg (28.0-32.0); MEAN CORPUSCULAR VOLUME 83.5 fL (81.0-99.0); MEAN PLATELET VOLUME 8.1 fl (7.4-10.4); MONOCYTES % 8.3 % (2.0-8.0); NEUTROPHILS % 68.3 % (40.0-76.0); PLATELET 322 x1000/uL (130-400); RED BLOOD CELL COUNT 3.47 mill/uL (4.2-5.4); RED CELL DISTRIBUTION WIDTH 16.3 % (11.6-14.6)
[2018-11-23 07:41] LABS: PHOSPHORUS 3.3 mg/dL (2.5-4.9)
[2018-11-23] MEDS: INSULIN LISPRO 100 UNITS/ML SUBCUT SCH ×4 (07:52→21:00)
[2018-11-23 08:00] VITALS: BP 149/63
[2018-11-23] MEDS: POLYETHYLENE GLYCOL 3350 (17GM) 1 DOSE PACK PO SCH (08:58)
[2018-11-23] MEDS: CALCIUM ACETATE 667MG CAPSULE PO SCH ×3 (08:59→17:38)
[2018-11-23] MEDS: SODIUM BICARBONATE 650 MG TABLET PO SCH ×2 (08:59→17:37)
[2018-11-23] MEDS: AMLODIPINE 5MG TABLET PO SCH ×2 (08:59→20:42)
[2018-11-23] MEDS: DOCUSATE SODIUM 100MG CAPSULE PO SCH ×2 (09:00→17:38)
[2018-11-23] MEDS: GUAIFENESIN 600MG ER TABLET PO SCH ×2 (09:00→20:42)
[2018-11-23] MEDS: CARVEDILOL 12.5MG TABLET PO SCH ×2 (09:00→20:42)
[2018-11-23 12:00] VITALS: BP 150/62
[2018-11-23 20:00] VITALS: BP 163/61
[2018-11-23 21:25] VITALS: BP 118/70
== END 2018-11-23 23:15 | disposition short-term general hospital (02) | DRG 64 ==
LOC: ER 13:06 → 7WST 16:25 → EDBEDREQ 16:30 → ENRESERV 20:51
PROVIDERS: ADMIT Internal Medicine; ATTEND Internal Medicine
PROC: 30233N1 Transfusion of Nonautologous Red Blood Cells into Peripheral Vein, Percutaneous Approach (ICD-10-PCS; principal; 2018-11-16)
PROC: 4A00X4Z Measurement of Central Nervous Electrical Activity, External Approach (ICD-10-PCS; 2018-11-19)
PROC: 0W9B3ZZ Drainage of Left Pleural Cavity, Percutaneous Approach (ICD-10-PCS; 2018-11-20)
DX: I63.9 Cerebral infarction, unspecified (principal); J18.9 Pneumonia, unspecified organism; J96.00 Acute respiratory failure, unspecified whether with hypoxia or hypercapnia; E43 Unspecified severe protein-calorie malnutrition; I50.43 Acute on chronic combined systolic (congestive) and diastolic (congestive) heart failure; I33.0 Acute and subacute infective endocarditis; I13.0 Hypertensive heart and chronic kidney disease with heart failure and stage 1 through stage 4 chronic kidney disease, or unspecified chronic kidney disease; N17.9 Acute kidney failure, unspecified; N18.4 Chronic kidney disease, stage 4 (severe); E87.2 Acidosis; N39.0 Urinary tract infection, site not specified; J91.8 Pleural effusion in other conditions classified elsewhere; I31.3 Pericardial effusion (noninflammatory); G81.94 Hemiplegia, unspecified affecting left nondominant side; E11.22 Type 2 diabetes mellitus with diabetic chronic kidney disease; E78.5 Hyperlipidemia, unspecified; D63.8 Anemia in other chronic diseases classified elsewhere; B95.1 Streptococcus, group B, as the cause of diseases classified elsewhere; I27.20 Pulmonary hypertension, unspecified; I35.0 Nonrheumatic aortic (valve) stenosis; E87.8 Other disorders of electrolyte and fluid balance, not elsewhere classified; E11.40 Type 2 diabetes mellitus with diabetic neuropathy, unspecified; M19.90 Unspecified osteoarthritis, unspecified site; M10.9 Gout, unspecified; G89.29 Other chronic pain; M54.5 Low back pain; D50.9 Iron deficiency anemia, unspecified; K80.20 Calculus of gallbladder without cholecystitis without obstruction; L29.9 Pruritus, unspecified; R21 Rash and other nonspecific skin eruption; N28.1 Cyst of kidney, acquired; K56.41 Fecal impaction; R70.0 Elevated erythrocyte sedimentation rate; I65.22 Occlusion and stenosis of left carotid artery; D15.1 Benign neoplasm of heart; Z68.27 Body mass index [BMI] 27.0-27.9, adult; Z90.710 Acquired absence of both cervix and uterus; Z83.3 Family history of diabetes mellitus; Z82.49 Family history of ischemic heart disease and other diseases of the circulatory system; Z79.82 Long term (current) use of aspirin; Z87.01 Personal history of pneumonia (recurrent); Z79.899 Other long term (current) drug therapy; Z79.84 Long term (current) use of oral hypoglycemic drugs
CPT/HCPCS: 32555; 36415; 36600; 70544; 70551; 71045; 71250; 74176; 80048; 80061; 80305; 82040; 82270; 82375; 82550; 82553; 82570; 82607; 82728; 82746; 82784; 82805; 82962; 83036; 83520; 83540; 83550; 83605; 83615; 83735; 83880; 84100; 84145; 84155; 84156; 84165; 84439; 84443; 84481; 84484; 84550; 85014; 85018; 85044; 85379; 85651; 86038; 86140; 86256; 86334; 86430; 86850; 86900; 86920; 87077; 88108; 88312; 93005; 93306; 93312; 93880; 93970; 94640; 97116; 97162; 97166; 97530; 99291; C1893; J0360; J0696; J1815; J1940; J2250; J3010; J3490; J7040; J7620; P9016

== ENCOUNTER 2018-11-27 17:50 | Inpatient (IN) | payer MEDICARE ==
[~2018-11-27] VITALS: Ht 170.2 cm; Wt 87.5 kg
[2018-11-27 17:30] VITALS: BP 155/71
[2018-11-27] MEDS ORDERED: WARF1TAB85 MT (19:25)
[2018-11-27] MEDS ORDERED: WARFARIN SODIUM 1MG TABLET PO ONE (19:30)
[2018-11-27] MEDS ORDERED: DEXTROSE 50% WATER 50ML SYRINGE IV PRN (19:30)
[2018-11-27 19:40] VITALS: BP 155/71
[2018-11-27 20:11] VITALS: BP 147/57
[2018-11-27] MEDS: INSULIN LISPRO 100 UNITS/ML SUBCUT SCH (21:00)
[2018-11-27] MEDS: HYDRALAZINE HCL 25MG TABLET PO SCH (21:07)
[2018-11-27] MEDS: BLOOD SUGAR DIAGNOSTIC STRIP TEST SCH (21:08)
[2018-11-27 21:11] LABS: BASOPHILS % 1.4 % (0.0-2.0); EOSINOPHILS % 2.3 % (0.0-5.0); HEMATOCRIT. 29.8 % (36.0-48.0); HEMOGLOBIN. 9.8 g/dL (12.0-16.0); LYMPHOCYTES % 19.5 % (20.0-50.0); MEAN CORPUSCULAR HEMOGLOBIN 27.6 pg (28.0-32.0); MEAN CORPUSCULAR VOLUME 83.9 fL (81.0-99.0); MONOCYTES % 7.5 % (2.0-8.0); NEUTROPHILS % 69.3 % (40.0-76.0); PLATELET 353 x1000/uL (130-400); RED BLOOD CELL COUNT 3.55 mill/uL (4.2-5.4); RED CELL DISTRIBUTION WIDTH 16.5 % (11.6-14.6)
[2018-11-27 21:18] LABS: INR 1.2; PROTHROMBIN TIME 12.3 sec (9.6-11.0)
[2018-11-27] MEDS ORDERED: WARFARIN SODIUM 2MG TABLET PO NR ×2 (22:00→22:17)
[2018-11-27 23:59] VITALS: BP 144/63
[2018-11-28 04:00] VITALS: BP 134/52
[2018-11-28 05:42] LABS: INR 1.3; PROTHROMBIN TIME 12.7 sec (9.6-11.0)
[2018-11-28] MEDS: HYDRALAZINE HCL 25MG TABLET PO SCH ×2 (05:46→14:04)
[2018-11-28] MEDS: BLOOD SUGAR DIAGNOSTIC STRIP TEST SCH ×4 (06:52→21:58)
[2018-11-28] MEDS: INSULIN LISPRO 100 UNITS/ML SUBCUT SCH ×4 (07:50→21:00)
[2018-11-28] MEDS ORDERED: METFORMIN HCL 500MG TABLET PO SCH (07:50)
[2018-11-28 08:00] VITALS: BP 157/77
[2018-11-28] MEDS ORDERED: AMLODIPINE 2.5MG TABLET PO SCH (09:00)
[2018-11-28 12:00] VITALS: BP 136/65
[2018-11-28 16:00] VITALS: BP 146/69
[2018-11-28 17:00] LABS: BG BASE EXCESS -0.2 mmol/L (-2.0-2.0); BG CARBOXYHEMOGLOBIN 0.3 % (0.5-1.5); BG DEOXYHEMOGLOBIN 10.4 % (0.0-5.0); BG FRACTION INSPIRED OXYGEN 21; BG HCO3 ACT 23.7 mmol/L (22.0-26.0); BG METHEMOGLOBIN 0.2 % (0.0-1.5); BG OXYGEN SATURATION 89.5 % (92.0-98.5); BG OXYHEMOGLOBIN 89.1 % (94.0-97.0); BG PH 7.437 (7.350-7.450); BG SAMPLE SITE LEFT RADIAL; BG VENT MODE ROOM AIR
[2018-11-28] MEDS ORDERED: WARFARIN SODIUM 3MG TABLET PO NR (18:00)
[2018-11-28] MEDS ORDERED: PIPERACILLIN/TAZ 3.375G PREMIX 50 ML IV SCH (18:15)
[2018-11-28] MEDS ORDERED: ACETAMINOPHEN 325MG TABLET PO PRN (18:15)
[2018-11-28] MEDS ORDERED: ONDANSETRON HCL 4MG/2ML INJ IV PRN (18:15)
[2018-11-28 20:00] VITALS: BP 128/62
[2018-11-28] MEDS: PIPERACILLIN/TAZ 2.25G PREMIX 50 ML IV SCH (20:55)
[2018-11-28] MEDS ORDERED: VANCOMYCIN 750 MG PREMIX 150 ML IV SCH (21:00)
[2018-11-28] MEDS: ATORVASTATIN CALCIUM 40MG TABLET PO SCH (21:57)
[2018-11-28] MEDS: AMLODIPINE 5MG TABLET PO SCH (21:58)
[2018-11-28] MEDS: HYDRALAZINE HCL 50MG TABLET PO SCH (21:58)
[2018-11-28 23:58] VITALS: BP 137/63
[2018-11-29] MEDS: PIPERACILLIN/TAZ 2.25G PREMIX 50 ML IV SCH ×3 (03:21→20:14)
[2018-11-29 04:00] VITALS: BP 147/63
[2018-11-29] MEDS: HYDRALAZINE HCL 50MG TABLET PO SCH ×3 (05:26→21:35)
[2018-11-29] MEDS: BLOOD SUGAR DIAGNOSTIC STRIP TEST SCH ×4 (06:39→20:14)
[2018-11-29 07:46] LABS: BASOPHILS % 0.9 % (0.0-2.0); EOSINOPHILS % 1.4 % (0.0-5.0); HEMATOCRIT. 30.9 % (36.0-48.0); HEMOGLOBIN. 9.8 g/dL (12.0-16.0); LYMPHOCYTES % 19.7 % (20.0-50.0); MEAN CORPUSCULAR HEMOGLOBIN 26.5 pg (28.0-32.0); MEAN CORPUSCULAR VOLUME 83.3 fL (81.0-99.0); MEAN PLATELET VOLUME 8.4 fl (7.4-10.4); MONOCYTES % 8.5 % (2.0-8.0); NEUTROPHILS % 69.5 % (40.0-76.0); PLATELET 370 x1000/uL (130-400); RED BLOOD CELL COUNT 3.71 mill/uL (4.2-5.4); RED CELL DISTRIBUTION WIDTH 16.6 % (11.6-14.6)
[2018-11-29] MEDS: INSULIN LISPRO 100 UNITS/ML SUBCUT SCH ×4 (07:50→20:27)
[2018-11-29 07:51] LABS: INR 1.3; PROTHROMBIN TIME 13.6 sec (9.6-11.0)
[2018-11-29 08:00] VITALS: BP 132/64
[2018-11-29] MEDS: AMLODIPINE 5MG TABLET PO SCH ×2 (09:24→20:14)
[2018-11-29 12:00] VITALS: BP 119/61
[2018-11-29 16:00] VITALS: BP 136/54
[2018-11-29] MEDS ORDERED: WARFARIN SODIUM 5MG TABLET PO NR (18:00)
[2018-11-29] MEDS: ATORVASTATIN CALCIUM 40MG TABLET PO SCH (20:14)
[2018-11-29 20:26] VITALS: BP 141/64
[2018-11-30 00:46] VITALS: BP 113/52
[2018-11-30] MEDS: IPRATROPIUM/ALBUTEROL 0.5-3(2.5)MG/3ML NEB HHN PRN (01:03)
[2018-11-30] MEDS: PIPERACILLIN/TAZ 2.25G PREMIX 50 ML IV SCH ×3 (03:27→21:03)
[2018-11-30 04:00] VITALS: BP 132/53
[2018-11-30] MEDS: HYDRALAZINE HCL 50MG TABLET PO SCH ×3 (05:07→21:03)
[2018-11-30 07:14] LABS: BASOPHILS % 1.2 % (0.0-2.0); EOSINOPHILS % 1.8 % (0.0-5.0); HEMATOCRIT. 27.5 % (36.0-48.0); HEMOGLOBIN. 8.9 g/dL (12.0-16.0); INR 1.6; MEAN CORPUSCULAR HEMOGLOBIN 27.1 pg (28.0-32.0); MEAN CORPUSCULAR VOLUME 83.3 fL (81.0-99.0); MEAN PLATELET VOLUME 8.3 fl (7.4-10.4); MONOCYTES % 8.1 % (2.0-8.0); NEUTROPHILS % 70.9 % (40.0-76.0); PLATELET 302 x1000/uL (130-400); PROTHROMBIN TIME 15.9 sec (9.6-11.0); RED CELL DISTRIBUTION WIDTH 16.5 % (11.6-14.6)
[2018-11-30] MEDS: BLOOD SUGAR DIAGNOSTIC STRIP TEST SCH ×4 (07:50→21:13)
[2018-11-30] MEDS: INSULIN LISPRO 100 UNITS/ML SUBCUT SCH ×4 (07:50→21:21)
[2018-11-30 08:53] VITALS: BP 120/58
[2018-11-30] MEDS: AMLODIPINE 5MG TABLET PO SCH ×2 (08:57→21:03)
[2018-11-30 12:58] VITALS: BP 132/88
[2018-11-30 14:34] LABS: CLARITY URINE CLOUDY (CLEAR); COLOR URINE YELLOW (YELLOW); KETONES URINE TRACE (NEGATIVE); LEUKOCYTE ESTERASE URINE 2+ (NEGATIVE); NITRITE URINE NEGATIVE (NEGATIVE); OCCULT BLOOD URINE NEGATIVE (NEGATIVE); PROTEIN URINE 3+ (NEGATIVE); SPECIFIC GRAVITY URINE 1.017 (1.005-1.030); UROBILINOGEN URINE 0.2 E.U./dL (0.2-1.0)
[2018-11-30 16:34] VITALS: BP 134/56
[2018-11-30] MEDS ORDERED: WARFARIN SODIUM 5MG TABLET PO NR (18:00)
[2018-11-30 20:00] VITALS: BP 137/62
[2018-11-30] MEDS: ATORVASTATIN CALCIUM 40MG TABLET PO SCH (21:03)
[2018-12-01] VITALS: BP 145/64
[2018-12-01] MEDS: IPRATROPIUM/ALBUTEROL 0.5-3(2.5)MG/3ML NEB HHN PRN (01:05)
[2018-12-01 04:00] VITALS: BP 133/53
[2018-12-01] MEDS: PIPERACILLIN/TAZ 2.25G PREMIX 50 ML IV SCH ×3 (04:28→23:47)
[2018-12-01] MEDS: HYDRALAZINE HCL 50MG TABLET PO SCH ×3 (06:14→21:57)
[2018-12-01] MEDS: BLOOD SUGAR DIAGNOSTIC STRIP TEST SCH ×4 (06:14→21:57)
[2018-12-01] MEDS: INSULIN LISPRO 100 UNITS/ML SUBCUT SCH ×4 (06:19→21:56)
[2018-12-01 07:01] LABS: INR 1.8; PROTHROMBIN TIME 18.3 sec (9.6-11.0)
[2018-12-01 07:11] LABS: BASOPHILS % 0.7 % (0.0-2.0); EOSINOPHILS % 2.5 % (0.0-5.0); HEMATOCRIT. 27.7 % (36.0-48.0); HEMOGLOBIN. 8.9 g/dL (12.0-16.0); LYMPHOCYTES % 15.9 % (20.0-50.0); MEAN CORPUSCULAR HEMOGLOBIN 26.9 pg (28.0-32.0); MEAN CORPUSCULAR VOLUME 83.5 fL (81.0-99.0); MEAN PLATELET VOLUME 8.3 fl (7.4-10.4); MONOCYTES % 6.6 % (2.0-8.0); NEUTROPHILS % 74.3 % (40.0-76.0); PLATELET 304 x1000/uL (130-400); RED BLOOD CELL COUNT 3.32 mill/uL (4.2-5.4); RED CELL DISTRIBUTION WIDTH 16.5 % (11.6-14.6)
[2018-12-01 08:00] VITALS: BP 135/56
[2018-12-01] MEDS: AMLODIPINE 5MG TABLET PO SCH ×2 (08:45→21:56)
[2018-12-01 12:00] VITALS: BP 136/60
[2018-12-01 12:55] LABS: BG BASE EXCESS -4.1 mmol/L (-2.0-2.0); BG CARBOXYHEMOGLOBIN 0.2 % (0.5-1.5); BG DEOXYHEMOGLOBIN 10.3 % (0.0-5.0); BG HCO3 ACT 20.1 mmol/L (22.0-26.0); BG METHEMOGLOBIN 0.3 % (0.0-1.5); BG OXYGEN SATURATION 89.6 % (92.0-98.5); BG OXYHEMOGLOBIN 89.2 % (94.0-97.0); BG PCO2 33.3 mmHg (35.0-45.0); BG PH 7.398 (7.350-7.450); BG PO2 53.8 mmHg (75.0-100.0); BG SAMPLE SITE RIGHT BRACHIAL; BG VENT MODE ROOM AIR
[2018-12-01 16:00] VITALS: BP 144/61
[2018-12-01] MEDS ORDERED: WARFARIN SODIUM 4MG TABLET PO SCH (18:00)
[2018-12-01 20:00] VITALS: BP 154/64
[2018-12-01] MEDS: ATORVASTATIN CALCIUM 40MG TABLET PO SCH (21:56)
[2018-12-01] MEDS ORDERED: METF-416 MT (22:03)
[2018-12-01] MEDS ORDERED: ASPI-1158 MT (22:03)
[2018-12-01] MEDS ORDERED: GLUC-130 PO (22:03)
[2018-12-01] MEDS ORDERED: HYDR-4135 MT (22:03)
[2018-12-01] MEDS ORDERED: ACET-2708 MT (22:04)
[2018-12-01] MEDS ORDERED: LOSA-20 MT (22:05)
[2018-12-02 00:16] VITALS: BP 136/59
[2018-12-02 04:00] VITALS: BP 139/55
[2018-12-02] MEDS: PIPERACILLIN/TAZ 2.25G PREMIX 50 ML IV SCH ×2 (04:50→13:48)
[2018-12-02] MEDS: HYDRALAZINE HCL 50MG TABLET PO SCH ×2 (05:02→13:48)
[2018-12-02 06:32] LABS: INR 2.3; PROTHROMBIN TIME 22.7 sec (9.6-11.0)
[2018-12-02] MEDS: BLOOD SUGAR DIAGNOSTIC STRIP TEST SCH ×2 (06:47→12:43)
[2018-12-02 06:48] LABS: BASOPHILS % 0.9 % (0.0-2.0); EOSINOPHILS % 2.3 % (0.0-5.0); HEMATOCRIT. 27.4 % (36.0-48.0); LYMPHOCYTES % 19.8 % (20.0-50.0); MEAN CORPUSCULAR HEMOGLOBIN 27.4 pg (28.0-32.0); MEAN CORPUSCULAR VOLUME 83.1 fL (81.0-99.0); MEAN PLATELET VOLUME 8.4 fl (7.4-10.4); MONOCYTES % 8.1 % (2.0-8.0); NEUTROPHILS % 68.9 % (40.0-76.0); PLATELET 317 x1000/uL (130-400); RED CELL DISTRIBUTION WIDTH 16.7 % (11.6-14.6)
[2018-12-02] MEDS: INSULIN LISPRO 100 UNITS/ML SUBCUT SCH ×2 (07:17→12:50)
[2018-12-02 07:18] LABS: PHOSPHORUS 4.3 mg/dL (2.5-4.9)
[2018-12-02] MEDS: AMLODIPINE 5MG TABLET PO SCH (08:17)
[2018-12-02 08:19] VITALS: BP 134/58
[2018-12-02 12:29] VITALS: BP 144/62
[2018-12-02 16:30] VITALS: BP 102/74
[2018-12-02 17:57] VITALS: BP 132/78
[2018-12-02] MEDS ORDERED: AMLODIPINE 10MG TABLET PO SCH (21:00)
== END 2018-12-02 18:25 | disposition home or self-care (01) | DRG 291 ==
LOC: 6WST 17:50
PROVIDERS: ADMIT Internal Medicine; ATTEND Internal Medicine
DX: I13.0 Hypertensive heart and chronic kidney disease with heart failure and stage 1 through stage 4 chronic kidney disease, or unspecified chronic kidney disease (principal); I50.33 Acute on chronic diastolic (congestive) heart failure; J96.00 Acute respiratory failure, unspecified whether with hypoxia or hypercapnia; J18.9 Pneumonia, unspecified organism; N17.9 Acute kidney failure, unspecified; N18.4 Chronic kidney disease, stage 4 (severe); N39.0 Urinary tract infection, site not specified; I69.351 Hemiplegia and hemiparesis following cerebral infarction affecting right dominant side; I27.20 Pulmonary hypertension, unspecified; E11.22 Type 2 diabetes mellitus with diabetic chronic kidney disease; D15.1 Benign neoplasm of heart; I35.0 Nonrheumatic aortic (valve) stenosis; D64.9 Anemia, unspecified; M19.90 Unspecified osteoarthritis, unspecified site; I65.22 Occlusion and stenosis of left carotid artery; E79.0 Hyperuricemia without signs of inflammatory arthritis and tophaceous disease; Z90.710 Acquired absence of both cervix and uterus; Z79.899 Other long term (current) drug therapy; Z82.49 Family history of ischemic heart disease and other diseases of the circulatory system
CPT/HCPCS: 36415; 36600; 71045; 73140; 76770; 80048; 82375; 82805; 82962; 83735; 84100; 84145; 84550; 85651; 86141; 93970; J1815; J2543; J3370; J7050; J7620

== ENCOUNTER 2018-12-26 01:17 | Inpatient (IN) | payer MEDICARE, OTHER ==
[2018-12-26] VITALS (28 sets, daily range): BP systolic 124–142; BP diastolic 56–68
[~2018-12-26] VITALS: Ht 175.3 cm; Wt 81.6 kg
[~2018-12-26 01:17] MED LIST changes: +ACET-2708 MT; +GLUC-130 PO; +HYDR-4135 MT; -METF-815 PO; +WARF1TAB85 MT
[2018-12-26] MEDS ORDERED: FUROSEMIDE 40MG/4ML VIAL IV ONE (01:45)
[2018-12-26] MEDS ORDERED: NITROGLYCERIN 0.4MG TABLET SL SL PRN (01:45)
[2018-12-26 04:20] LABS: BASOPHILS % 0.5 % (0.0-2.0); EOSINOPHILS % 0.2 % (0.0-5.0); LYMPHOCYTES % 7.6 % (20.0-50.0); MEAN CORPUSCULAR HEMOGLOBIN 27.4 pg (28.0-32.0); MEAN CORPUSCULAR VOLUME 83.5 fL (81.0-99.0); MEAN PLATELET VOLUME 8.4 fl (7.4-10.4); NEUTROPHILS % 84.7 % (40.0-76.0); PLATELET 263 x1000/uL (130-400); RED CELL DISTRIBUTION WIDTH 17.3 % (11.6-14.6)
[2018-12-26 04:30] LABS: HEMATOCRIT. 19.2 % (36.0-48.0); HEMOGLOBIN. 6.3 g/dL (12.0-16.0)
[2018-12-26 04:37] LABS: CHLORIDE 111 mEq/L (98-107)
[2018-12-26] MEDS ORDERED: ONDANSETRON HCL 4MG/2ML INJ IV PRN (08:15)
[2018-12-26] MEDS ORDERED: DEXTROSE 50% WATER 50ML SYRINGE IV PRN (08:15)
[2018-12-26] MEDS ORDERED: IPRATROPIUM/ALBUTEROL 0.5-3(2.5)MG/3ML NEB HHN PRN (08:15)
[2018-12-26] MEDS ORDERED: FUROSEMIDE 40MG/4ML VIAL IVP SCH (09:00)
[2018-12-26] MEDS: BLOOD SUGAR DIAGNOSTIC STRIP TEST SCH ×4 (09:30→21:22)
[2018-12-26] MEDS: INSULIN LISPRO 100 UNITS/ML SUBCUT SCH ×4 (10:35→21:00)
[2018-12-26] MEDS: FAMOTIDINE 20MG/2ML VIAL IV SCH (10:35)
[2018-12-26 11:20] LABS: BG BILEVEL POS AIRWAY PRESSURE 18/5; BG CARBOXYHEMOGLOBIN 0.4 % (0.5-1.5); BG DEOXYHEMOGLOBIN 0.8 % (0.0-5.0); BG FRACTION INSPIRED OXYGEN 50; BG HCO3 ACT 19.7 mmol/L (22.0-26.0); BG METHEMOGLOBIN 0.2 % (0.0-1.5); BG OXYGEN SATURATION 99.2 % (92.0-98.5); BG OXYHEMOGLOBIN 98.6 % (94.0-97.0); BG PCO2 34.7 mmHg (35.0-45.0); BG PH 7.372 (7.350-7.450); BG PO2 162.6 mmHg (75.0-100.0); BG SAMPLE SITE RIGHT RADIAL; BG TOTAL HEMOGLOBIN 7.8 g/dL (12.0-18.0); BG VENT MODE MASK - BIPAP
[2018-12-26] MEDS ORDERED: SODIUM POLYSTYRENE SULFONATE 15 G/60 ML BOT PO NR (13:00)
[2018-12-26] MEDS: CEFEPIME 1,000 MG in DEXTROSE 5% WATER 50 ML IV SCH (13:23)
[2018-12-26] MEDS: AZITHROMYCIN 500 MG in DEXT 5% WATER 250 ML IV SCH (15:14)
[2018-12-26 15:59] LABS: BG BASE EXCESS -4.9 mmol/L (-2.0-2.0); BG BILEVEL POS AIRWAY PRESSURE 18/5; BG CARBOXYHEMOGLOBIN 0.3 % (0.5-1.5); BG DEOXYHEMOGLOBIN 4.6 % (0.0-5.0); BG FRACTION INSPIRED OXYGEN 35; BG HCO3 ACT 19.8 mmol/L (22.0-26.0); BG METHEMOGLOBIN 0.4 % (0.0-1.5); BG OXYGEN SATURATION 95.4 % (92.0-98.5); BG OXYHEMOGLOBIN 94.7 % (94.0-97.0); BG PO2 79.7 mmHg (75.0-100.0); BG SAMPLE SITE RIGHT BRACHIAL; BG TOTAL HEMOGLOBIN 10.4 g/dL (12.0-18.0); BG VENT MODE MASK - BIPAP
[2018-12-26 18:09] LABS: PROTHROMBIN TIME > 100.0 sec (9.6-11.0)
[2018-12-26 18:13] LABS: PARTIAL THROMBOPLASTIN TIME > 200.0 sec (23.4-31.0)
[2018-12-26 20:10] LABS: HEMATOCRIT 23.5 % (36.0-48.0); HEMOGLOBIN 8.1 g/dL (12.0-16.0)
[2018-12-27] VITALS (66 sets, daily range): BP systolic 137–166; BP diastolic 46–90
[2018-12-27] MEDS: ACETAMINOPHEN 325MG TABLET PO PRN ×2 (01:51→20:03)
[2018-12-27 06:15] LABS: BASOPHILS % 0.5 % (0.0-2.0); EOSINOPHILS % 0.6 % (0.0-5.0); HEMATOCRIT. 24.1 % (36.0-48.0); HEMOGLOBIN. 8.1 g/dL (12.0-16.0); LYMPHOCYTES % 15.8 % (20.0-50.0); MEAN CORPUSCULAR HEMOGLOBIN 28.1 pg (28.0-32.0); MEAN CORPUSCULAR VOLUME 83.4 fL (81.0-99.0); MEAN PLATELET VOLUME 8.3 fl (7.4-10.4); MONOCYTES % 7.3 % (2.0-8.0); NEUTROPHILS % 75.8 % (40.0-76.0); PLATELET 228 x1000/uL (130-400); RED BLOOD CELL COUNT 2.89 mill/uL (4.2-5.4); RED CELL DISTRIBUTION WIDTH 16.7 % (11.6-14.6)
[2018-12-27] MEDS: BLOOD SUGAR DIAGNOSTIC STRIP TEST SCH ×4 (06:19→21:04)
[2018-12-27 06:20] LABS: PARTIAL THROMBOPLASTIN TIME 61.1 sec (23.4-31.0); PROTHROMBIN TIME 40.6 sec (9.6-11.0)
[2018-12-27] MEDS: INSULIN LISPRO 100 UNITS/ML SUBCUT SCH ×4 (07:00→21:00)
[2018-12-27 07:20] LABS: INR 4.2
[2018-12-27] MEDS: FUROSEMIDE 40MG/4ML VIAL IVP SCH ×2 (08:52→17:34)
[2018-12-27] MEDS: FAMOTIDINE 20MG/2ML VIAL IV SCH (08:52)
[2018-12-27] MEDS ORDERED: PHYTONADIONE 10MG/ML AMP SUBCUT SCH (09:00)
[2018-12-27] MEDS: CEFEPIME 1,000 MG in DEXTROSE 5% WATER 50 ML IV SCH (14:15)
[2018-12-27] MEDS: AZITHROMYCIN 500 MG in DEXT 5% WATER 250 ML IV SCH (14:58)
[2018-12-27] MEDS ORDERED: HYDROCODONE/ACETAMINOPHEN 5/325MG TABLET PO PRN (20:58)
[2018-12-27] MEDS ORDERED: CLONIDINE 0.1MG TABLET PO PRN (21:00)
[2018-12-27] MEDS: MORPHINE SULFATE 2 MG/ML CPJ (NOT FOR IM USE) IV PRN (23:43)
[2018-12-28] VITALS (36 sets, daily range): BP systolic 137–176; BP diastolic 53–97
[2018-12-28 05:47] LABS: BASOPHILS % 0.5 % (0.0-2.0); EOSINOPHILS % 0.5 % (0.0-5.0); HEMATOCRIT. 23.3 % (36.0-48.0); HEMOGLOBIN. 7.8 g/dL (12.0-16.0); LYMPHOCYTES % 16.4 % (20.0-50.0); MEAN CORPUSCULAR HEMOGLOBIN 28.1 pg (28.0-32.0); MEAN CORPUSCULAR VOLUME 83.8 fL (81.0-99.0); MEAN PLATELET VOLUME 8.5 fl (7.4-10.4); MONOCYTES % 6.9 % (2.0-8.0); NEUTROPHILS % 75.7 % (40.0-76.0); PLATELET 252 x1000/uL (130-400); RED BLOOD CELL COUNT 2.78 mill/uL (4.2-5.4); RED CELL DISTRIBUTION WIDTH 16.8 % (11.6-14.6)
[2018-12-28 05:48] LABS: PROTHROMBIN TIME 19.7 sec (9.6-11.0)
[2018-12-28 06:07] LABS: PHOSPHORUS 4.8 mg/dL (2.5-4.9)
[2018-12-28] MEDS: BLOOD SUGAR DIAGNOSTIC STRIP TEST SCH ×4 (06:11→20:26)
[2018-12-28] MEDS: INSULIN LISPRO 100 UNITS/ML SUBCUT SCH ×4 (06:12→20:26)
[2018-12-28 06:42] LABS: INR > 10.0
[2018-12-28] MEDS: FUROSEMIDE 40MG/4ML VIAL IVP SCH ×2 (06:53→17:13)
[2018-12-28] MEDS: FAMOTIDINE 20MG/2ML VIAL IV SCH (08:36)
[2018-12-28] MEDS: MORPHINE SULFATE 2 MG/ML CPJ (NOT FOR IM USE) IV PRN (08:37)
[2018-12-28] MEDS ORDERED: CAPSAICIN 0.075% CREAM 60GM TOP PRN (11:00)
[2018-12-28] MEDS: IPRATROPIUM/ALBUTEROL 0.5-3(2.5)MG/3ML NEB HHN SCH ×3 (11:52→20:39)
[2018-12-28] MEDS: CEFEPIME 1,000 MG in DEXTROSE 5% WATER 50 ML IV SCH (12:27)
[2018-12-28] MEDS: NYSTATIN POWDER 15GM TOP SCH ×2 (12:42→17:13)
[2018-12-28] MEDS: AZITHROMYCIN 500 MG in DEXT 5% WATER 250 ML IV SCH (14:07)
[2018-12-28] MEDS ORDERED: WARFARIN SODIUM 1MG TABLET PO SCH (18:00)
[2018-12-28] MEDS: AMLODIPINE 10MG TABLET PO SCH (20:26)
[2018-12-28] MEDS: CALAMINE LOTION 120ML TOP SCH (20:26)
[2018-12-29] VITALS (10 sets, daily range): BP systolic 126–147; BP diastolic 56–96
[2018-12-29] MEDS: ACETYLCYSTEINE 100MG/ML 10% VIAL 4ML INH SCH (00:04)
[2018-12-29] MEDS: IPRATROPIUM/ALBUTEROL 0.5-3(2.5)MG/3ML NEB HHN SCH ×5 (00:04→20:27)
[2018-12-29 06:22] LABS: BASOPHILS % 0.7 % (0.0-2.0); EOSINOPHILS % 0.5 % (0.0-5.0); HEMATOCRIT. 23.2 % (36.0-48.0); HEMOGLOBIN. 7.7 g/dL (12.0-16.0); LYMPHOCYTES % 18.8 % (20.0-50.0); MEAN CORPUSCULAR VOLUME 84.1 fL (81.0-99.0); MEAN PLATELET VOLUME 8.4 fl (7.4-10.4); MONOCYTES % 6.8 % (2.0-8.0); NEUTROPHILS % 73.2 % (40.0-76.0); PLATELET 243 x1000/uL (130-400); RED BLOOD CELL COUNT 2.76 mill/uL (4.2-5.4); RED CELL DISTRIBUTION WIDTH 16.8 % (11.6-14.6)
[2018-12-29] MEDS: FUROSEMIDE 40MG/4ML VIAL IVP SCH ×2 (06:22→17:14)
[2018-12-29 06:26] LABS: INR 1.4
[2018-12-29 07:38] LABS: PHOSPHORUS 4.1 mg/dL (2.5-4.9)
[2018-12-29] MEDS: INSULIN LISPRO 100 UNITS/ML SUBCUT SCH ×4 (08:00→20:53)
[2018-12-29] MEDS: BLOOD SUGAR DIAGNOSTIC STRIP TEST SCH ×4 (08:21→20:53)
[2018-12-29] MEDS: FAMOTIDINE 20MG/2ML VIAL IV SCH (09:02)
[2018-12-29] MEDS: NYSTATIN POWDER 15GM TOP SCH ×3 (09:02→17:14)
[2018-12-29] MEDS: CALAMINE LOTION 120ML TOP SCH ×2 (09:02→20:56)
[2018-12-29] MEDS: AMLODIPINE 10MG TABLET PO SCH (09:02)
[2018-12-29] MEDS: MORPHINE SULFATE 2 MG/ML CPJ (NOT FOR IM USE) IV PRN (09:41)
[2018-12-29] MEDS ORDERED: POTASSIUM CHLORIDE 20MEQ TABLET SR PO NR (10:00)
[2018-12-29] MEDS ORDERED: MAGNESIUM 2 G PREMIX 50 ML IV SCH (11:00)
[2018-12-29] MEDS: CEFEPIME 1,000 MG in DEXTROSE 5% WATER 50 ML IV SCH (12:38)
[2018-12-29] MEDS ORDERED: METOLAZONE 10MG TABLET PO NR (14:15)
[2018-12-29] MEDS: AZITHROMYCIN 500 MG in DEXT 5% WATER 250 ML IV SCH (15:31)
[2018-12-29] MEDS ORDERED: INSU100I11 SQ (16:36)
[2018-12-29] MEDS ORDERED: DIPH25CA83 PO (16:37)
[2018-12-29] MEDS ORDERED: FURO20TA4 PO (16:38)
[2018-12-29] MEDS ORDERED: WARFARIN SODIUM 3MG TABLET PO SCH (18:00)
[2018-12-30] VITALS (13 sets, daily range): BP systolic 112–155; BP diastolic 56–87
[2018-12-30] MEDS: IPRATROPIUM/ALBUTEROL 0.5-3(2.5)MG/3ML NEB HHN SCH ×6 (00:39→20:14)
[2018-12-30] MEDS: ACETYLCYSTEINE 100MG/ML 10% VIAL 4ML INH SCH ×3 (00:40→15:48)
[2018-12-30 07:03] LABS: INR 1.3; PROTHROMBIN TIME 13.7 sec (9.6-11.0)
[2018-12-30] MEDS: BLOOD SUGAR DIAGNOSTIC STRIP TEST SCH ×4 (07:30→20:40)
[2018-12-30 07:41] LABS: BASOPHILS % 0.4 % (0.0-2.0); EOSINOPHILS % 0.4 % (0.0-5.0); HEMATOCRIT. 21.7 % (36.0-48.0); HEMOGLOBIN. 7.3 g/dL (12.0-16.0); LYMPHOCYTES % 22.9 % (20.0-50.0); MEAN CORPUSCULAR HEMOGLOBIN 28.1 pg (28.0-32.0); MEAN CORPUSCULAR VOLUME 83.1 fL (81.0-99.0); MEAN PLATELET VOLUME 8.6 fl (7.4-10.4); MONOCYTES % 6.7 % (2.0-8.0); NEUTROPHILS % 69.6 % (40.0-76.0); PLATELET 242 x1000/uL (130-400); RED BLOOD CELL COUNT 2.61 mill/uL (4.2-5.4); RED CELL DISTRIBUTION WIDTH 16.6 % (11.6-14.6)
[2018-12-30] MEDS: INSULIN LISPRO 100 UNITS/ML SUBCUT SCH ×4 (08:00→21:07)
[2018-12-30 08:12] LABS: PHOSPHORUS 4.2 mg/dL (2.5-4.9)
[2018-12-30] MEDS: FUROSEMIDE 40MG/4ML VIAL IVP SCH ×2 (08:38→17:51)
[2018-12-30] MEDS: METOLAZONE 10MG TABLET PO SCH (08:38)
[2018-12-30] MEDS: AMLODIPINE 10MG TABLET PO SCH (08:38)
[2018-12-30] MEDS: FAMOTIDINE 20MG/2ML VIAL IV SCH (08:39)
[2018-12-30] MEDS: NYSTATIN POWDER 15GM TOP SCH ×3 (08:39→17:51)
[2018-12-30] MEDS: CALAMINE LOTION 120ML TOP SCH ×2 (08:40→20:40)
[2018-12-30] MEDS: CEFEPIME 1,000 MG in DEXTROSE 5% WATER 50 ML IV SCH (13:05)
[2018-12-30] MEDS: AZITHROMYCIN 500 MG in DEXT 5% WATER 250 ML IV SCH (14:16)
[2018-12-30] MEDS ORDERED: WARFARIN SODIUM 5MG TABLET PO SCH (18:00)
[2018-12-31] VITALS (13 sets, daily range): BP systolic 131–177; BP diastolic 46–74
[2018-12-31] MEDS: IPRATROPIUM/ALBUTEROL 0.5-3(2.5)MG/3ML NEB HHN SCH ×4 (00:09→13:27)
[2018-12-31] MEDS: ACETYLCYSTEINE 100MG/ML 10% VIAL 4ML INH SCH (00:09)
[2018-12-31 06:41] LABS: INR 1.4
[2018-12-31 06:50] LABS: BASOPHILS % 0.7 % (0.0-2.0); EOSINOPHILS % 0.9 % (0.0-5.0); HEMATOCRIT. 26.4 % (36.0-48.0); HEMOGLOBIN. 8.8 g/dL (12.0-16.0); LYMPHOCYTES % 20.3 % (20.0-50.0); MEAN CORPUSCULAR VOLUME 83.6 fL (81.0-99.0); MEAN PLATELET VOLUME 8.4 fl (7.4-10.4); MONOCYTES % 6.6 % (2.0-8.0); NEUTROPHILS % 71.5 % (40.0-76.0); PLATELET 254 x1000/uL (130-400); RED BLOOD CELL COUNT 3.15 mill/uL (4.2-5.4); RED CELL DISTRIBUTION WIDTH 16.3 % (11.6-14.6)
[2018-12-31] MEDS: BLOOD SUGAR DIAGNOSTIC STRIP TEST SCH ×3 (07:42→17:20)
[2018-12-31] MEDS: INSULIN LISPRO 100 UNITS/ML SUBCUT SCH ×3 (07:42→17:57)
[2018-12-31] MEDS: FUROSEMIDE 40MG/4ML VIAL IVP SCH ×2 (08:39→17:20)
[2018-12-31] MEDS: FAMOTIDINE 20MG/2ML VIAL IV SCH (08:39)
[2018-12-31] MEDS: AMLODIPINE 10MG TABLET PO SCH (08:39)
[2018-12-31] MEDS: METOLAZONE 10MG TABLET PO SCH (08:39)
[2018-12-31] MEDS: NYSTATIN POWDER 15GM TOP SCH ×3 (08:40→17:21)
[2018-12-31] MEDS: CALAMINE LOTION 120ML TOP SCH (08:40)
[2018-12-31] MEDS: CEFEPIME 1,000 MG in DEXTROSE 5% WATER 50 ML IV SCH (12:49)
[2018-12-31] MEDS ORDERED: MAGNESIUM HYDROXIDE 400MG/5ML 30ML UDC PO PRN (13:30)
[2018-12-31] MEDS ORDERED: DOCUSATE SODIUM 250MG CAPSULE PO SCH (13:30)
[2018-12-31] MEDS ORDERED: AZITHROMYCIN 500 MG TABLET PO SCH (14:00)
[2018-12-31] MEDS ORDERED: BUDESONIDE 0.5MG/2ML NEB HHN SCH (15:30)
[2018-12-31] MEDS ORDERED: PREDNISONE 20MG TABLET PO SCH (15:30)
[2018-12-31] MEDS ORDERED: LIDOCAINE HCL/PF 2% 20MG/ML 5 ML/VIAL INJ NR (15:45)
[2018-12-31] MEDS ORDERED: LIDOCAINE HCL 2%/EPINEPHRINE/PF 10 ML VIAL INFIL NR (17:00)
[2018-12-31] MEDS ORDERED: WARFARIN SODIUM 5MG TABLET PO NR (18:00)
[2019-01-01] MEDS ORDERED: FAMOTIDINE 20MG TABLET PO SCH (09:00)
[2019-01-01 09:06] LABS: IMMUNOGLOBULIN A 359 mg/dL (64-422); IMMUNOGLOBULIN G 1660 mg/dL (700-1600); IMMUNOGLOBULIN M 33 mg/dL (26-217)
== END 2018-12-31 19:35 | disposition home or self-care (01) | DRG 871 ==
LOC: ER 01:17 → MICUSO 04:00 → EDBEDREQSVC 04:01 → EDBEDREQ 04:01 → EDBEDREQTM 04:01 → ENRESERV 08:37 → MICUNO 12-28 06:21 → MICUSO 12-28 16:30 → 5EST 12-28 21:40
PROVIDERS: ADMIT Internal Medicine; ATTEND Internal Medicine
PROC: 30233N1 Transfusion of Nonautologous Red Blood Cells into Peripheral Vein, Percutaneous Approach (ICD-10-PCS; principal; 2018-12-26)
PROC: 02HV33Z Insertion of Infusion Device into Superior Vena Cava, Percutaneous Approach (ICD-10-PCS; 2018-12-26)
PROC: B548ZZA Ultrasonography of Superior Vena Cava, Guidance (ICD-10-PCS; 2018-12-26)
PROC: 5A09357 Assistance with Respiratory Ventilation, Less than 24 Consecutive Hours, Continuous Positive Airway Pressure (ICD-10-PCS; 2018-12-26)
PROC: 30233K1 Transfusion of Nonautologous Frozen Plasma into Peripheral Vein, Percutaneous Approach (ICD-10-PCS; 2018-12-26)
DX: A41.9 Sepsis, unspecified organism (principal); J96.01 Acute respiratory failure with hypoxia; I50.33 Acute on chronic diastolic (congestive) heart failure; E43 Unspecified severe protein-calorie malnutrition; J18.9 Pneumonia, unspecified organism; N18.4 Chronic kidney disease, stage 4 (severe); N17.9 Acute kidney failure, unspecified; I13.0 Hypertensive heart and chronic kidney disease with heart failure and stage 1 through stage 4 chronic kidney disease, or unspecified chronic kidney disease; D68.32 Hemorrhagic disorder due to extrinsic circulating anticoagulants; E87.5 Hyperkalemia; I27.20 Pulmonary hypertension, unspecified; I35.0 Nonrheumatic aortic (valve) stenosis; T45.515A Adverse effect of anticoagulants, initial encounter; E11.22 Type 2 diabetes mellitus with diabetic chronic kidney disease; D64.9 Anemia, unspecified; E87.8 Other disorders of electrolyte and fluid balance, not elsewhere classified; R74.0 Nonspecific elevation of levels of transaminase and lactic acid dehydrogenase [LDH]; I16.0 Hypertensive urgency; S90.821A Blister (nonthermal), right foot, initial encounter; X58.XXXA Exposure to other specified factors, initial encounter; R04.0 Epistaxis; L30.4 Erythema intertrigo; D15.1 Benign neoplasm of heart; K59.00 Constipation, unspecified; I65.22 Occlusion and stenosis of left carotid artery; K64.9 Unspecified hemorrhoids; Z79.01 Long term (current) use of anticoagulants; Z82.49 Family history of ischemic heart disease and other diseases of the circulatory system; Z83.3 Family history of diabetes mellitus; Z86.73 Personal history of transient ischemic attack (TIA), and cerebral infarction without residual deficits; Z87.01 Personal history of pneumonia (recurrent); Z87.891 Personal history of nicotine dependence; Z90.710 Acquired absence of both cervix and uterus; Z99.81 Dependence on supplemental oxygen; Y92.89 Other specified places as the place of occurrence of the external cause; Z79.899 Other long term (current) drug therapy; Z68.26 Body mass index [BMI] 26.0-26.9, adult; Y93.89 Activity, other specified; Y99.8 Other external cause status
CPT/HCPCS: 36415; 36569; 36600; 71045; 71250; 73620; 76937; 78278; 80048; 80076; 82270; 82375; 82784; 82805; 82962; 83735; 83880; 84100; 84134; 84145; 84484; 85014; 85018; 86334; 86850; 86900; 86920; 86927; 93005; 93922; 93970; 94640; 94660; 97110; 97116; 97162; 97166; 97530; 97535; 99291; A6261; A9560; C1725; C1893; J0456; J0692; J1815; J1940; J2270; J3430; J3475; J3490; J7050; J7060; J7512; J7608; J7620; J7626; P9016; P9017

== ENCOUNTER 2019-05-12 13:56 | Emergency (ER) | payer MEDICARE, OTHER ==
[~2019-05-12] VITALS: Ht 170.2 cm; Wt 76.0 kg
[~2019-05-12 13:56] MED LIST changes: -ACET-2708 MT; -AMLO10TA80 PO; +DIPH25CA83 PO; +FURO20TA4 PO; -GLUC-130 PO; -HYDR-4135 MT; +INSU100I11 SQ; -WARF1TAB85 MT
[2019-05-12] MEDS ORDERED: NAPROXEN 375MG TABLET PO ONE (16:30)
[2019-05-12 18:14] VITALS: BP 130/72
== END 2019-05-12 18:17 | disposition home or self-care (01) ==
LOC: ER 13:56
DX: M17.12 Unilateral primary osteoarthritis, left knee (principal); I11.0 Hypertensive heart disease with heart failure; I50.9 Heart failure, unspecified; E11.9 Type 2 diabetes mellitus without complications
CPT/HCPCS: 73562; 99283

== ENCOUNTER 2019-05-21 10:31 | Emergency (ER) | payer MEDICARE ==
[~2019-05-21] VITALS: Ht 170.2 cm; Wt 76.0 kg
[2019-05-21] MEDS ORDERED: KETOROLAC 15MG/ML VIAL IV ONE (12:00)
[2019-05-21 14:01] VITALS: BP 147/50
== END 2019-05-21 14:03 | disposition home or self-care (01) ==
LOC: ER 10:31
DX: M25.562 Pain in left knee (principal); M25.462 Effusion, left knee; I11.0 Hypertensive heart disease with heart failure; I50.9 Heart failure, unspecified; E11.9 Type 2 diabetes mellitus without complications; J44.9 Chronic obstructive pulmonary disease, unspecified; Z90.710 Acquired absence of both cervix and uterus; Z79.899 Other long term (current) drug therapy
CPT/HCPCS: 73560; 96374; 99283; J1885

== ENCOUNTER 2019-05-29 21:00 | Inpatient (IN) | payer MEDICARE ==
[~2019-05-29] VITALS: Ht 165.1 cm; Wt 83.0 kg
[2019-05-29 22:08] LABS: BASOPHILS % 0.5 % (0.0-2.0); EOSINOPHILS % 0.2 % (0.0-5.0); LYMPHOCYTES % 16.9 % (20.0-50.0); MEAN CORPUSCULAR HEMOGLOBIN 27.8 pg (28.0-32.0); MEAN CORPUSCULAR VOLUME 88.5 fL (81.0-99.0); MEAN PLATELET VOLUME 8.5 fl (7.4-10.4); MONOCYTES % 9.6 % (2.0-8.0); NEUTROPHILS % 72.8 % (40.0-76.0); PLATELET 378 x1000/uL (130-400); RED BLOOD CELL COUNT 1.81 mill/uL (4.2-5.4); RED CELL DISTRIBUTION WIDTH 14.2 % (11.6-14.6)
[2019-05-29 22:10] LABS: CHLORIDE 113 mEq/L (98-107)
[2019-05-29 22:13] LABS: ETHANOL BLOOD < 10 mg/dL
[2019-05-29 22:17] LABS: LDL CHOLESTEROL 51 mg/dL (5-100)
[2019-05-29] MEDS ORDERED: DEXTROSE 50% WATER 50ML SYRINGE IV ONE (22:30)
[2019-05-29] MEDS ORDERED: INSULIN REGULAR (HUMULIN R) 300UNITS/3ML IV ONE (22:30)
[2019-05-29] MEDS ORDERED: CALCIUM CHLORIDE 1GM/10ML SYR IV ONE (22:30)
[2019-05-29] MEDS ORDERED: SODIUM BICARBONATE 8.4% 1 MEQ/ML 50ML SYR IV ONE (22:30)
[2019-05-29 22:35] LABS: PROTHROMBIN TIME > 100.0 sec (9.6-11.0)
[2019-05-29 22:37] LABS: INR > 10.0
[2019-05-29] MEDS ORDERED: PHYTONADIONE 10 MG/10 ML ORALSYR PO NR (22:45)
[2019-05-29] MEDS ORDERED: PANTOPRAZOLE SODIUM 40 MG/VIAL IV ONE (23:00)
[2019-05-29] MEDS ORDERED: ALBUTEROL (0.083%) 2.5MG/3ML NEB HHN NR (23:15)
[2019-05-29] MEDS ORDERED: IOHEXOL-350 100 ML BOTTLE ONE (23:20)
[2019-05-29] MEDS ORDERED: PIPERACILLIN/TAZOBACTAM 3.375GM/50ML PREMIX IV ONE (23:45)
[2019-05-29] MEDS ORDERED: VANCOMYCIN 1 G PREMIX 200 ML IV SCH (23:45)
[2019-05-30] VITALS (32 sets, daily range): BP systolic 101–145; BP diastolic 36–94
[2019-05-30] MEDS ORDERED: PIPERACILLIN/TAZOBACTAM 2.25 G in DEXTROSE 5% WATER 50 ML IV NR ×2
[2019-05-30] MEDS ORDERED: PHYTONADIONE 10MG/ML AMP PO SCH (00:15)
[2019-05-30 00:45] LABS: CLARITY URINE CLEAR (CLEAR); COLOR URINE YELLOW (YELLOW); KETONES URINE NEGATIVE (NEGATIVE); LEUKOCYTE ESTERASE URINE NEGATIVE (NEGATIVE); NITRITE URINE NEGATIVE (NEGATIVE); OCCULT BLOOD URINE NEGATIVE (NEGATIVE); PROTEIN URINE TRACE (NEGATIVE); SPECIFIC GRAVITY URINE 1.017 (1.005-1.030)
[2019-05-30 00:53] LABS: *BARBITURATES SCREEN URINE NEGATIVE (NEGATIVE); *BENZODIAZEPINES SCREEN URINE NEGATIVE (NEGATIVE); CANNABINOID URINE SCREEN NEGATIVE (NEGATIVE); PHENCYCLIDINE URINE SCREEN NEGATIVE (NEGATIVE)
[2019-05-30 00:54] LABS: *AMPHETAMINES SCREEN URINE NEGATIVE (NEGATIVE); *COCAINE SCREEN URINE NEGATIVE (NEGATIVE); METHADONE URINE SCREEN NEGATIVE (NEGATIVE); OPIATES URINE SCREEN NEGATIVE (NEGATIVE)
[2019-05-30] MEDS ORDERED: PHYTONADIONE 10MG/ML AMP IM SCH (02:30)
[2019-05-30] MEDS ORDERED: ONDANSETRON HCL 4MG/2ML INJ IV PRN (02:30)
[2019-05-30] MEDS ORDERED: NOREPINEPHRINE 16 MG in DEXT 5% WATER 234 ML IV PRN (03:00)
[2019-05-30] MEDS: PIPERACILLIN/TAZOBACTAM 2.25 G in DEXTROSE 5% WATER 50 ML IV SCH ×3 (06:30→21:18)
[2019-05-30 08:15] LABS: BASOPHILS % 0.5 % (0.0-2.0); EOSINOPHILS % 0.1 % (0.0-5.0); HEMOGLOBIN. 7.3 g/dL (12.0-16.0); LYMPHOCYTES % 10.9 % (20.0-50.0); MEAN CORPUSCULAR VOLUME 87.1 fL (81.0-99.0); MEAN PLATELET VOLUME 8.7 fl (7.4-10.4); MONOCYTES % 8.4 % (2.0-8.0); NEUTROPHILS % 80.1 % (40.0-76.0); PLATELET 264 x1000/uL (130-400); RED BLOOD CELL COUNT 2.52 mill/uL (4.2-5.4); RED CELL DISTRIBUTION WIDTH 13.7 % (11.6-14.6)
[2019-05-30 08:23] LABS: INR 1.5; PARTIAL THROMBOPLASTIN TIME 46.2 sec (23.4-31.0); PROTHROMBIN TIME 15.1 sec (9.6-11.0)
[2019-05-30] MEDS: SODIUM CHLORIDE 0.45% 1,000 ML IV SCH ×2 (08:45→21:17)
[2019-05-30] MEDS ORDERED: DEXTROSE 50% WATER 50ML SYRINGE IV PRN (08:45)
[2019-05-30] MEDS: PANTOPRAZOLE SODIUM 40 MG/VIAL IV SCH ×2 (09:00→21:17)
[2019-05-30 10:03] LABS: BG BASE EXCESS -2.7 mmol/L (-2.0-2.0); BG CARBOXYHEMOGLOBIN 1.1 % (0.5-1.5); BG DEOXYHEMOGLOBIN 2.7 % (0.0-5.0); BG FRACTION INSPIRED OXYGEN 21; BG HCO3 ACT 21.2 mmol/L (22.0-26.0); BG METHEMOGLOBIN 0.3 % (0.0-1.5); BG OXYGEN SATURATION 97.3 % (92.0-98.5); BG OXYHEMOGLOBIN 95.9 % (94.0-97.0); BG PCO2 32.2 mmHg (35.0-45.0); BG PH 7.436 (7.350-7.450); BG PO2 94.1 mmHg (75.0-100.0); BG SAMPLE SITE RIGHT RADIAL; BG TOTAL HEMOGLOBIN 7.1 g/dL (12.0-18.0); BG VENT MODE ROOM AIR
[2019-05-30] MEDS ORDERED: SODIUM POLYSTYRENE SULFONATE 15 G/60 ML BOT PO SCH (12:00)
[2019-05-30] MEDS: INSULIN LISPRO 100 UNITS/ML SUBCUT SCH ×3 (13:20→21:33)
[2019-05-30] MEDS: BLOOD SUGAR DIAGNOSTIC STRIP TEST SCH ×3 (13:27→21:18)
[2019-05-30] MEDS ORDERED: EPOETIN ALFA 10000UNITS/ML VIAL SUBCUT SCH (21:00)
[2019-05-30 21:54] LABS: BASOPHILS % 0.6 % (0.0-2.0); EOSINOPHILS % 0.7 % (0.0-5.0); HEMOGLOBIN. 9.3 g/dL (12.0-16.0); LYMPHOCYTES % 11.4 % (20.0-50.0); MEAN CORPUSCULAR HEMOGLOBIN 29.2 pg (28.0-32.0); MEAN PLATELET VOLUME 8.8 fl (7.4-10.4); MONOCYTES % 8.5 % (2.0-8.0); NEUTROPHILS % 78.8 % (40.0-76.0); PLATELET 269 x1000/uL (130-400); RED BLOOD CELL COUNT 3.18 mill/uL (4.2-5.4)
[2019-05-30] MEDS: MORPHINE SULFATE 2 MG/ML CPJ (NOT FOR IM USE) IV PRN (22:38)
[2019-05-31] VITALS (25 sets, daily range): BP systolic 86–150; BP diastolic 38–83
[2019-05-31] MEDS ORDERED: SODIUM POLYSTYRENE SULFONATE 15 G/60 ML BOT PO NR
[2019-05-31] MEDS: MORPHINE SULFATE 2 MG/ML CPJ (NOT FOR IM USE) IV PRN ×5 (04:57→22:13)
[2019-05-31 05:08] LABS: BASOPHILS % 0.7 % (0.0-2.0); EOSINOPHILS % 1.3 % (0.0-5.0); HEMATOCRIT. 27.4 % (36.0-48.0); HEMOGLOBIN. 9.2 g/dL (12.0-16.0); LYMPHOCYTES % 11.7 % (20.0-50.0); MEAN CORPUSCULAR HEMOGLOBIN 29.5 pg (28.0-32.0); MEAN CORPUSCULAR VOLUME 87.6 fL (81.0-99.0); MEAN PLATELET VOLUME 8.7 fl (7.4-10.4); MONOCYTES % 7.1 % (2.0-8.0); NEUTROPHILS % 79.2 % (40.0-76.0); PLATELET 259 x1000/uL (130-400); RED BLOOD CELL COUNT 3.12 mill/uL (4.2-5.4); RED CELL DISTRIBUTION WIDTH 14.6 % (11.6-14.6)
[2019-05-31 05:21] LABS: PHOSPHORUS 5.3 mg/dL (2.5-4.9)
[2019-05-31] MEDS: PIPERACILLIN/TAZOBACTAM 2.25 G in DEXTROSE 5% WATER 50 ML IV SCH (05:22)
[2019-05-31] MEDS: BLOOD SUGAR DIAGNOSTIC STRIP TEST SCH ×4 (08:00→20:37)
[2019-05-31] MEDS ORDERED: SODIUM POLYSTYRENE SULFONATE 15 G/60 ML BOT PO SCH (10:00)
[2019-05-31] MEDS ORDERED: VANCOMYCIN 750 MG PREMIX 150 ML IV SCH (10:00)
[2019-05-31] MEDS: PANTOPRAZOLE SODIUM 40 MG/VIAL IV SCH ×2 (10:01→21:07)
[2019-05-31] MEDS: SODIUM CHLORIDE 0.45% 1,000 ML IV SCH (10:02)
[2019-05-31] MEDS: INSULIN LISPRO 100 UNITS/ML SUBCUT SCH ×4 (10:03→21:08)
[2019-05-31 11:48] LABS: T4 FREE 1.16 ng/dL (0.76-1.46)
[2019-05-31] MEDS ORDERED: LIDOCAINE HCL 1% 20ML VIAL (Pyxis) INJ ONE (12:01)
[2019-05-31] MEDS ORDERED: SODIUM BICARBONATE 4% (2.4MEQ) 5ML VIAL IV ONE (12:02)
[2019-05-31] MEDS: SILDENAFIL CITRATE 20MG TABLET PO SCH ×2 (14:00→21:07)
[2019-05-31] MEDS: DEXT 5%/0.2% NACL 1,000 ML IV SCH (15:38)
[2019-05-31 16:16] LABS: D-DIMER 4.93 mg/L FEU (<0.50); INR 1.3
[2019-05-31 16:17] LABS: CREATINE KINASE MB FRACTION 2.3 ng/mL (0.5-3.6)
[2019-05-31 23:35] LABS: CREATINE KINASE MB FRACTION 1.7 ng/mL (0.5-3.6)
[2019-06-01] VITALS (15 sets, daily range): BP systolic 88–134; BP diastolic 42–77
[2019-06-01] MEDS: DEXT 5%/0.2% NACL 1,000 ML IV SCH ×3 (01:38→12:28)
[2019-06-01] MEDS: MORPHINE SULFATE 2 MG/ML CPJ (NOT FOR IM USE) IV PRN ×3 (03:07→13:21)
[2019-06-01 05:05] LABS: BASOPHILS % 0.5 % (0.0-2.0); EOSINOPHILS % 0.8 % (0.0-5.0); HEMATOCRIT. 24.1 % (36.0-48.0); HEMOGLOBIN. 8.1 g/dL (12.0-16.0); LYMPHOCYTES % 10.5 % (20.0-50.0); MEAN CORPUSCULAR HEMOGLOBIN 29.5 pg (28.0-32.0); MEAN PLATELET VOLUME 8.7 fl (7.4-10.4); MONOCYTES % 7.9 % (2.0-8.0); NEUTROPHILS % 80.3 % (40.0-76.0); PLATELET 232 x1000/uL (130-400); RED BLOOD CELL COUNT 2.74 mill/uL (4.2-5.4); RED CELL DISTRIBUTION WIDTH 14.3 % (11.6-14.6)
[2019-06-01 05:23] LABS: PHOSPHORUS 5.1 mg/dL (2.5-4.9)
[2019-06-01 05:31] LABS: CREATINE KINASE MB FRACTION 1.8 ng/mL (0.5-3.6)
[2019-06-01] MEDS: SILDENAFIL CITRATE 20MG TABLET PO SCH ×3 (06:27→21:13)
[2019-06-01] MEDS: BLOOD SUGAR DIAGNOSTIC STRIP TEST SCH ×4 (08:31→21:09)
[2019-06-01 08:37] LABS: INR 1.3; PROTHROMBIN TIME 13.2 sec (9.6-11.0)
[2019-06-01] MEDS: PANTOPRAZOLE SODIUM 40 MG/VIAL IV SCH ×2 (08:44→21:13)
[2019-06-01] MEDS: INSULIN LISPRO 100 UNITS/ML SUBCUT SCH ×4 (08:57→21:00)
[2019-06-01] MEDS ORDERED: CEFEPIME 500 MG in DEXTROSE 5% WATER 50 ML IV SCH (09:45)
[2019-06-01] MEDS ORDERED: LIDOCAINE HCL 1% 20ML VIAL (Pyxis) INJ ONE (10:30)
[2019-06-01] MEDS ORDERED: MORPHINE SULFATE 2 MG/ML CPJ (NOT FOR IM USE) IV NR (10:30)
[2019-06-01] MEDS ORDERED: SODIUM BICARBONATE 4% (2.4MEQ) 5ML VIAL IV ONE (10:31)
[2019-06-01] MEDS: CEFEPIME 1,000 MG in DEXTROSE 5% WATER 50 ML IV SCH (11:55)
[2019-06-01] MEDS: HYDROMORPHONE HCL/PF 2MG/ML CPJ IV PRN (17:10)
[2019-06-01] MEDS: GABAPENTIN 300MG CAPSULE PO SCH (21:13)
[2019-06-02] VITALS: BP 134/51
[2019-06-02 04:00] VITALS: BP 136/54
[2019-06-02] MEDS: DEXT 5%/0.2% NACL 1,000 ML IV SCH ×2 (04:15→14:15)
[2019-06-02] MEDS: GABAPENTIN 300MG CAPSULE PO SCH ×3 (06:17→21:40)
[2019-06-02] MEDS: SILDENAFIL CITRATE 20MG TABLET PO SCH ×3 (06:17→22:00)
[2019-06-02] MEDS: HYDROMORPHONE HCL/PF 2MG/ML CPJ IV PRN ×2 (06:28→16:14)
[2019-06-02] MEDS: INSULIN LISPRO 100 UNITS/ML SUBCUT SCH ×4 (06:31→21:00)
[2019-06-02] MEDS: BLOOD SUGAR DIAGNOSTIC STRIP TEST SCH ×4 (06:32→21:40)
[2019-06-02 06:51] LABS: BASOPHILS % 0.4 % (0.0-2.0); EOSINOPHILS % 0.7 % (0.0-5.0); HEMATOCRIT. 23.3 % (36.0-48.0); HEMOGLOBIN. 7.8 g/dL (12.0-16.0); LYMPHOCYTES % 10.6 % (20.0-50.0); MEAN CORPUSCULAR HEMOGLOBIN 29.7 pg (28.0-32.0); MEAN CORPUSCULAR VOLUME 88.2 fL (81.0-99.0); MEAN PLATELET VOLUME 8.6 fl (7.4-10.4); MONOCYTES % 6.9 % (2.0-8.0); NEUTROPHILS % 81.4 % (40.0-76.0); PLATELET 238 x1000/uL (130-400); RED BLOOD CELL COUNT 2.64 mill/uL (4.2-5.4)
[2019-06-02 07:20] LABS: PHOSPHORUS 5.5 mg/dL (2.5-4.9)
[2019-06-02 08:00] VITALS: BP 92/53
[2019-06-02] MEDS: COLCHICINE 0.6MG TABLET PO SCH ×2 (10:21→10:27)
[2019-06-02] MEDS: PANTOPRAZOLE SODIUM 40 MG/VIAL IV SCH ×2 (10:21→10:28)
[2019-06-02] MEDS: HYDROCODONE/ACETAMINOPHEN 10/325MG TABLET PO PRN (11:13)
[2019-06-02] MEDS: DOCUSATE SODIUM SUGAR FREE 100MG/10ML UDC NG SCH ×2 (12:00→17:00)
[2019-06-02 12:29] VITALS: BP 109/44
[2019-06-02] MEDS ORDERED: VANCOMYCIN 500 MG PREMIX 100 ML IV NR (13:00)
[2019-06-02] MEDS ORDERED: SORBITOL 70% SOLN 30ML PO NR ×4 (13:45→21:00)
[2019-06-02] MEDS ORDERED: HYDROMORPHONE HCL/PF 2MG/ML CPJ IV NR (13:45)
[2019-06-02] MEDS: CEFEPIME 1,000 MG in DEXTROSE 5% WATER 50 ML IV SCH (14:01)
[2019-06-02 17:10] VITALS: BP 98/50
[2019-06-02 20:00] VITALS: BP 124/50
[2019-06-03] VITALS: BP 121/55
[2019-06-03] MEDS: DEXT 5%/0.2% NACL 1,000 ML IV SCH ×2 (00:15→22:11)
[2019-06-03 04:00] VITALS: BP 120/67
[2019-06-03] MEDS: GABAPENTIN 300MG CAPSULE PO SCH ×3 (05:35→21:55)
[2019-06-03] MEDS: BLOOD SUGAR DIAGNOSTIC STRIP TEST SCH ×4 (05:35→19:53)
[2019-06-03] MEDS: SILDENAFIL CITRATE 20MG TABLET PO SCH ×3 (05:35→21:55)
[2019-06-03] MEDS: INSULIN LISPRO 100 UNITS/ML SUBCUT SCH ×4 (05:36→21:00)
[2019-06-03 08:03] LABS: BASOPHILS % 0.4 % (0.0-2.0); HEMATOCRIT. 24.3 % (36.0-48.0); HEMOGLOBIN. 8.1 g/dL (12.0-16.0); MEAN CORPUSCULAR HEMOGLOBIN 29.7 pg (28.0-32.0); MEAN CORPUSCULAR VOLUME 89.4 fL (81.0-99.0); MEAN PLATELET VOLUME 8.2 fl (7.4-10.4); MONOCYTES % 8.3 % (2.0-8.0); NEUTROPHILS % 78.3 % (40.0-76.0); PLATELET 253 x1000/uL (130-400); RED BLOOD CELL COUNT 2.72 mill/uL (4.2-5.4); RED CELL DISTRIBUTION WIDTH 14.3 % (11.6-14.6)
[2019-06-03 08:29] LABS: PHOSPHORUS 6.7 mg/dL (2.5-4.9)
[2019-06-03 08:30] LABS: FOLIC ACID (FOLATE) SERUM 10.7 ng/mL (>5.38)
[2019-06-03 08:37] VITALS: BP 130/49
[2019-06-03] MEDS: DOCUSATE SODIUM SUGAR FREE 100MG/10ML UDC NG SCH ×2 (09:00→17:58)
[2019-06-03] MEDS: PANTOPRAZOLE SODIUM 40 MG/VIAL IV SCH (09:47)
[2019-06-03 12:13] VITALS: BP 101/46
[2019-06-03] MEDS: CALCIUM ACETATE 667MG CAPSULE PO SCH ×2 (12:20→17:58)
[2019-06-03] MEDS: CEFEPIME 1,000 MG in DEXTROSE 5% WATER 50 ML IV SCH (12:21)
[2019-06-03] MEDS ORDERED: FENTANYL CITRATE/PF 50MCG/ML 2ML VIAL ONE (15:52)
[2019-06-03] MEDS ORDERED: MIDAZOLAM HCL 5 MG/5 ML VIAL ONE (15:52)
[2019-06-03 16:00] VITALS: BP 121/50
[2019-06-03] MEDS ORDERED: MIDAZOLAM HCL 5 MG/5 ML VIAL IV PRN (16:00)
[2019-06-03] MEDS ORDERED: FENTANYL CITRATE/PF 50MCG/ML 2ML VIAL IV PRN (16:01)
[2019-06-03 20:00] VITALS: BP 128/52
[2019-06-04] VITALS: BP 131/55
[2019-06-04 04:00] VITALS: BP 122/50
[2019-06-04] MEDS: GABAPENTIN 300MG CAPSULE PO SCH ×3 (06:25→22:02)
[2019-06-04] MEDS: SILDENAFIL CITRATE 20MG TABLET PO SCH ×3 (06:26→22:03)
[2019-06-04] MEDS: OMEPRAZOLE 20MG CAPSULE EXTENDED RELEASE PO SCH (06:27)
[2019-06-04] MEDS: BLOOD SUGAR DIAGNOSTIC STRIP TEST SCH ×4 (06:28→21:50)
[2019-06-04 06:50] LABS: BASOPHILS % 0.4 % (0.0-2.0); EOSINOPHILS % 0.9 % (0.0-5.0); HEMATOCRIT. 22.1 % (36.0-48.0); HEMOGLOBIN. 7.4 g/dL (12.0-16.0); LYMPHOCYTES % 8.7 % (20.0-50.0); MEAN CORPUSCULAR HEMOGLOBIN 29.4 pg (28.0-32.0); MEAN CORPUSCULAR VOLUME 88.4 fL (81.0-99.0); MEAN PLATELET VOLUME 8.3 fl (7.4-10.4); MONOCYTES % 7.6 % (2.0-8.0); NEUTROPHILS % 82.4 % (40.0-76.0); PLATELET 238 x1000/uL (130-400); RED CELL DISTRIBUTION WIDTH 14.3 % (11.6-14.6)
[2019-06-04 07:00] LABS: PHOSPHORUS 5.1 mg/dL (2.5-4.9)
[2019-06-04] MEDS: INSULIN LISPRO 100 UNITS/ML SUBCUT SCH ×4 (07:31→21:00)
[2019-06-04 08:00] VITALS: BP 140/63
[2019-06-04] MEDS: CALCIUM ACETATE 667MG CAPSULE PO SCH ×3 (08:16→17:05)
[2019-06-04] MEDS: DOCUSATE SODIUM SUGAR FREE 100MG/10ML UDC NG SCH ×2 (08:16→17:01)
[2019-06-04] MEDS: COLCHICINE 0.6MG TABLET PO SCH (08:16)
[2019-06-04 09:10] LABS: COMPLEMENT C3 104 mg/dL (82-167)
[2019-06-04] MEDS ORDERED: VANCOMYCIN 750 MG PREMIX 150 ML IV NR (10:00)
[2019-06-04] MEDS: CEFEPIME 1,000 MG in DEXTROSE 5% WATER 50 ML IV SCH (10:40)
[2019-06-04 12:00] VITALS: BP 127/42
[2019-06-04 13:10] LABS: ANTI-DNA DOUBLE STRANDED QUANT 1 IU/mL (0-9); RNP ANTIBODY 0.2 AI (0.0-0.9); SMITH ANTIBODY < 0.2 AI (0.0-0.9)
[2019-06-04 16:00] VITALS: BP 122/42
[2019-06-04 20:00] VITALS: BP 128/53
[2019-06-04] MEDS: DEXT 5%/0.2% NACL 1,000 ML IV SCH (22:09)
[2019-06-05] VITALS (7 sets, daily range): BP systolic 106–140; BP diastolic 34–54
[2019-06-05 05:51] LABS: BASOPHILS % 0.4 % (0.0-2.0); EOSINOPHILS % 1.1 % (0.0-5.0); HEMATOCRIT. 21.4 % (36.0-48.0); HEMOGLOBIN. 7.3 g/dL (12.0-16.0); MEAN CORPUSCULAR HEMOGLOBIN 29.8 pg (28.0-32.0); MEAN CORPUSCULAR VOLUME 87.9 fL (81.0-99.0); MEAN PLATELET VOLUME 8.6 fl (7.4-10.4); MONOCYTES % 8.3 % (2.0-8.0); NEUTROPHILS % 80.2 % (40.0-76.0); PLATELET 245 x1000/uL (130-400); RED BLOOD CELL COUNT 2.44 mill/uL (4.2-5.4)
[2019-06-05] MEDS: SILDENAFIL CITRATE 20MG TABLET PO SCH ×3 (05:57→21:37)
[2019-06-05] MEDS: GABAPENTIN 300MG CAPSULE PO SCH ×3 (05:57→21:34)
[2019-06-05] MEDS: OMEPRAZOLE 20MG CAPSULE EXTENDED RELEASE PO SCH (05:57)
[2019-06-05 06:27] LABS: PHOSPHORUS 4.1 mg/dL (2.5-4.9)
[2019-06-05] MEDS: BLOOD SUGAR DIAGNOSTIC STRIP TEST SCH ×4 (07:10→20:42)
[2019-06-05] MEDS: INSULIN LISPRO 100 UNITS/ML SUBCUT SCH ×5 (07:18→21:00)
[2019-06-05] MEDS: CALCIUM ACETATE 667MG CAPSULE PO SCH ×4 (08:19→17:40)
[2019-06-05] MEDS: COLCHICINE 0.6MG TABLET PO SCH (08:19)
[2019-06-05] MEDS: DOCUSATE SODIUM SUGAR FREE 100MG/10ML UDC NG SCH ×3 (08:19→17:00)
[2019-06-05 10:10] LABS: DRVVT LA 78.8 sec (0.0-47.0); PTT-LA 48.6 sec (0.0-51.9)
[2019-06-05] MEDS: CEFEPIME 1,000 MG in DEXTROSE 5% WATER 50 ML IV SCH (11:02)
[2019-06-05 15:06] LABS: ANTI-CARDIOLIPIN AB IGA < 9 APL U/mL (0-11); ANTI-CARDIOLIPIN AB IGG 23 GPL U/mL (0-14); ANTI-CARDIOLIPIN AB IGM < 9 MPL U/mL (0-12)
[2019-06-05] MEDS: HYDROCODONE/ACETAMINOPHEN 10/325MG TABLET PO PRN (21:43)
[2019-06-06] VITALS: BP 111/64
[2019-06-06 04:00] VITALS: BP 118/61
[2019-06-06 05:41] LABS: BASOPHILS % 1.1 % (0.0-2.0); EOSINOPHILS % 1.3 % (0.0-5.0); HEMATOCRIT. 22.1 % (36.0-48.0); HEMOGLOBIN. 7.4 g/dL (12.0-16.0); LYMPHOCYTES % 12.8 % (20.0-50.0); MEAN CORPUSCULAR HEMOGLOBIN 29.3 pg (28.0-32.0); MEAN CORPUSCULAR VOLUME 87.8 fL (81.0-99.0); MEAN PLATELET VOLUME 8.4 fl (7.4-10.4); MONOCYTES % 8.8 % (2.0-8.0); PLATELET 264 x1000/uL (130-400); RED BLOOD CELL COUNT 2.51 mill/uL (4.2-5.4); RED CELL DISTRIBUTION WIDTH 14.1 % (11.6-14.6)
[2019-06-06] MEDS: BLOOD SUGAR DIAGNOSTIC STRIP TEST SCH ×4 (06:17→20:24)
[2019-06-06] MEDS: INSULIN LISPRO 100 UNITS/ML SUBCUT SCH ×4 (06:17→21:12)
[2019-06-06] MEDS: GABAPENTIN 300MG CAPSULE PO SCH ×3 (06:49→20:58)
[2019-06-06] MEDS: OMEPRAZOLE 20MG CAPSULE EXTENDED RELEASE PO SCH (06:49)
[2019-06-06] MEDS: SILDENAFIL CITRATE 20MG TABLET PO SCH ×3 (06:49→20:58)
[2019-06-06 08:00] VITALS: BP 150/67
[2019-06-06 09:06] LABS: DRVVT MIX LA 56.8 sec (0.0-47.0)
[2019-06-06] MEDS: COLCHICINE 0.6MG TABLET PO SCH (09:17)
[2019-06-06] MEDS: DOCUSATE SODIUM SUGAR FREE 100MG/10ML UDC NG SCH ×2 (09:17→17:20)
[2019-06-06] MEDS: CALCIUM ACETATE 667MG CAPSULE PO SCH ×3 (09:17→17:20)
[2019-06-06 12:00] VITALS: BP 115/64
[2019-06-06] MEDS: CEFEPIME 1,000 MG in DEXTROSE 5% WATER 50 ML IV SCH (12:13)
[2019-06-06] MEDS ORDERED: CLONIDINE 0.1MG TABLET PO PRN (13:00)
[2019-06-06 15:06] LABS: ANTI-MYELOPEROXIDASE AB < 9.0 U/mL (0.0-9.0); ANTI-PROTEINASE 3 ABS < 3.5 U/mL (0.0-3.5)
[2019-06-06 16:00] VITALS: BP 142/94
[2019-06-06 20:00] VITALS: BP 132/58
[2019-06-07] VITALS (7 sets, daily range): BP systolic 113–146; BP diastolic 36–88
[2019-06-07] MEDS: BLOOD SUGAR DIAGNOSTIC STRIP TEST SCH ×4 (05:55→20:59)
[2019-06-07 06:16] LABS: DRVVT LA CONFIRMATION 1.3 ratio (0.8-1.2)
[2019-06-07] MEDS: CALCIUM ACETATE 667MG CAPSULE PO SCH ×3 (06:27→16:42)
[2019-06-07] MEDS: GABAPENTIN 300MG CAPSULE PO SCH ×3 (06:27→21:09)
[2019-06-07] MEDS: OMEPRAZOLE 20MG CAPSULE EXTENDED RELEASE PO SCH (06:27)
[2019-06-07] MEDS: SILDENAFIL CITRATE 20MG TABLET PO SCH ×3 (06:27→21:27)
[2019-06-07] MEDS: INSULIN LISPRO 100 UNITS/ML SUBCUT SCH ×4 (06:36→21:10)
[2019-06-07 07:09] LABS: LUPUS ANTICOAG INTERPRETATION Comment: (.)
[2019-06-07 07:15] LABS: EOSINOPHILS % 0.5 % (0.0-5.0); HEMATOCRIT. 22.1 % (36.0-48.0); HEMOGLOBIN. 7.4 g/dL (12.0-16.0); LYMPHOCYTES % 11.9 % (20.0-50.0); MEAN CORPUSCULAR HEMOGLOBIN 29.6 pg (28.0-32.0); MEAN CORPUSCULAR VOLUME 87.6 fL (81.0-99.0); MEAN PLATELET VOLUME 8.4 fl (7.4-10.4); MONOCYTES % 9.2 % (2.0-8.0); NEUTROPHILS % 77.4 % (40.0-76.0); PLATELET 279 x1000/uL (130-400); RED BLOOD CELL COUNT 2.52 mill/uL (4.2-5.4)
[2019-06-07 09:06] LABS: GLOMERULAR BASEMENT MEMB AB 3 units (0-20)
[2019-06-07] MEDS: COLCHICINE 0.6MG TABLET PO SCH (09:34)
[2019-06-07] MEDS: DOCUSATE SODIUM SUGAR FREE 100MG/10ML UDC NG SCH ×2 (09:34→16:42)
[2019-06-07] MEDS: CEFEPIME 1,000 MG in DEXTROSE 5% WATER 50 ML IV SCH (11:26)
[2019-06-07 15:11] LABS: ATYPICAL P-ANCA <1:20 titer (Neg:<1:20); CYTOPLASMIC C-ANCA <1:20 titer (Neg:<1:20); PERINUCLEAR P-ANCA <1:20 titer (Neg:<1:20)
[2019-06-07] MEDS ORDERED: VANCOMYCIN 500 MG PREMIX 100 ML IV NR (16:00)
[2019-06-07] MEDS ORDERED: ACETAMINOPHEN 650MG SUPP PR PRN (17:45)
[2019-06-07] MEDS ORDERED: IPRATROPIUM/ALBUTEROL 0.5-3(2.5)MG/3ML NEB HHN PRN (17:45)
[2019-06-07] MEDS ORDERED: HYDROCODONE/ACETAMINOPHEN 5/325MG TABLET PO PRN (19:00)
[2019-06-08] VITALS (11 sets, daily range): BP systolic 49–126; BP diastolic 17–57
[2019-06-08] MEDS: SILDENAFIL CITRATE 20MG TABLET PO SCH (06:27)
[2019-06-08] MEDS: BLOOD SUGAR DIAGNOSTIC STRIP TEST SCH (06:28)
[2019-06-08] MEDS: GABAPENTIN 300MG CAPSULE PO SCH (06:28)
[2019-06-08] MEDS: OMEPRAZOLE 20MG CAPSULE EXTENDED RELEASE PO SCH (06:28)
[2019-06-08] MEDS: INSULIN LISPRO 100 UNITS/ML SUBCUT SCH (06:35)
[2019-06-08 07:43] LABS: BASOPHILS % 1.1 % (0.0-2.0); EOSINOPHILS % 0.1 % (0.0-5.0); HEMATOCRIT. 22.6 % (36.0-48.0); HEMOGLOBIN. 7.4 g/dL (12.0-16.0); MEAN CORPUSCULAR HEMOGLOBIN 28.8 pg (28.0-32.0); MEAN PLATELET VOLUME 8.6 fl (7.4-10.4); MONOCYTES % 10.2 % (2.0-8.0); NEUTROPHILS % 76.6 % (40.0-76.0); PLATELET 295 x1000/uL (130-400); RED BLOOD CELL COUNT 2.56 mill/uL (4.2-5.4); RED CELL DISTRIBUTION WIDTH 14.1 % (11.6-14.6)
[2019-06-08 07:46] LABS: PHOSPHORUS 3.9 mg/dL (2.5-4.9)
[2019-06-08] MEDS: DOCUSATE SODIUM SUGAR FREE 100MG/10ML UDC NG SCH (09:35)
[2019-06-08] MEDS: COLCHICINE 0.6MG TABLET PO SCH (09:36)
[2019-06-08] MEDS: CALCIUM ACETATE 667MG CAPSULE PO SCH (09:36)
[2019-06-08] MEDS ORDERED: PROPOFOL 10MG/ML 100ML 100 ML IV PRN (10:45)
[2019-06-08] MEDS ORDERED: PHENYLEPHRINE 20 MG in DEXT 5% WATER 248 ML IV PRN (10:45)
[2019-06-08] MEDS ORDERED: LORAZEPAM 2MG/ML CPJ IV PRN (11:30)
[2019-06-08] MEDS ORDERED: FENTANYL CITRATE/PF 500 MCG in SODIUM CHLORIDE 0.9% 40 ML IV PRN (11:30)
[2019-06-08] MEDS ORDERED: HALOPERIDOL LACTATE 5MG/ML VIAL IM PRN (11:30)
[2019-06-08] MEDS ORDERED: MEROPENEM 500 MG in SODIUM CHLORIDE 0.9% 50 ML IV SCH (12:00)
[2019-06-08] MEDS ORDERED: MORPHINE SULFATE 250 MG in DEXT 5% WATER 240 ML IV PRN (12:00)
[2019-06-08] MEDS ORDERED: ACETYLCYSTEINE 100MG/ML 10% VIAL 4ML INH SCH (14:00)
[2019-06-09 15:06] LABS: ANA IFA Positive (.)
== END 2019-06-08 13:04 | disposition expired | DRG 871 ==
LOC: ER 21:00 → CVICU 23:31 → ENRESERV 23:49 → 8WST 06-01 11:51 → CVICU 06-08 11:15
PROVIDERS: ADMIT Internal Medicine; ATTEND Internal Medicine
PROC: 30233K1 Transfusion of Nonautologous Frozen Plasma into Peripheral Vein, Percutaneous Approach (ICD-10-PCS; principal; 2019-05-30)
PROC: 30233N1 Transfusion of Nonautologous Red Blood Cells into Peripheral Vein, Percutaneous Approach (ICD-10-PCS; 2019-05-30)
PROC: 0S9D3ZX Drainage of Left Knee Joint, Percutaneous Approach, Diagnostic (ICD-10-PCS; 2019-05-31)
PROC: 0S9C3ZZ Drainage of Right Knee Joint, Percutaneous Approach (ICD-10-PCS; 2019-06-01)
PROC: 0W3P8ZZ Control Bleeding in Gastrointestinal Tract, Via Natural or Artificial Opening Endoscopic (ICD-10-PCS; 2019-06-03)
DX: A41.9 Sepsis, unspecified organism (principal); G93.41 Metabolic encephalopathy; E43 Unspecified severe protein-calorie malnutrition; I50.33 Acute on chronic diastolic (congestive) heart failure; J96.00 Acute respiratory failure, unspecified whether with hypoxia or hypercapnia; J18.9 Pneumonia, unspecified organism; K55.21 Angiodysplasia of colon with hemorrhage; N17.9 Acute kidney failure, unspecified; N18.4 Chronic kidney disease, stage 4 (severe); D68.9 Coagulation defect, unspecified; I13.0 Hypertensive heart and chronic kidney disease with heart failure and stage 1 through stage 4 chronic kidney disease, or unspecified chronic kidney disease; D62 Acute posthemorrhagic anemia; E87.0 Hyperosmolality and hypernatremia; Z66 Do not resuscitate; E87.5 Hyperkalemia; E87.8 Other disorders of electrolyte and fluid balance, not elsewhere classified; D50.9 Iron deficiency anemia, unspecified; D72.810 Lymphocytopenia; M25.462 Effusion, left knee; R65.20 Severe sepsis without septic shock; E11.22 Type 2 diabetes mellitus with diabetic chronic kidney disease; E11.51 Type 2 diabetes mellitus with diabetic peripheral angiopathy without gangrene; I08.0 Rheumatic disorders of both mitral and aortic valves; I27.21 Secondary pulmonary arterial hypertension; K29.70 Gastritis, unspecified, without bleeding; M17.10 Unilateral primary osteoarthritis, unspecified knee; T45.515A Adverse effect of anticoagulants, initial encounter; Z79.01 Long term (current) use of anticoagulants; Z79.4 Long term (current) use of insulin; Z82.49 Family history of ischemic heart disease and other diseases of the circulatory system; Z83.3 Family history of diabetes mellitus; Z86.73 Personal history of transient ischemic attack (TIA), and cerebral infarction without residual deficits; Z90.710 Acquired absence of both cervix and uterus; Z68.30 Body mass index [BMI] 30.0-30.9, adult
CPT/HCPCS: 20611; 36415; 36430; 36600; 70496; 70498; 70551; 71045; 72170; 73552; 73560; 73590; 80048; 80061; 80076; 80202; 80305; 80320; 81003; 82270; 82375; 82550; 82553; 82607; 82728; 82746; 82805; 82962; 83036; 83520; 83540; 83550; 83721; 83735; 83880; 84100; 84145; 84439; 84443; 84484; 84550; 85044; 85379; 85613; 85732; 86147; 86160; 86225; 86235; 86256; 86592; 86780; 86850; 86880; 86900; 86920; 86927; 89060; 92610; 93005; 93306; 93970; 96365; 96375; 97110; 97162; 97166; 97530; 97535; 99291; C1893; C9113; J0692; J0885; J1170; J1815; J2185; J2250; J2270; J2543; J3010; J3370; J3430; J3490; J7040; J7060; J7620; P9016; P9017; Q9967; A4315; G0480